=== PATIENT | female | born 1930 | race Caucasian/White ===

== ENCOUNTER 2017-02-16 18:03 | Inpatient (IN) | payer MEDICARE ==
[~2017-02-16] VITALS: Ht 162.6 cm; Wt 62.7 kg
[2017-02-16 22:10] VITALS: BP 149/69; PULSE 60; RESP 17; TEMP 97.2; O2SAT 93
[2017-02-16] MEDS ORDERED: METO50TA PO (22:18)
[2017-02-16] MEDS ORDERED: LOSA50TA PO (22:18)
[2017-02-16] MEDS ORDERED: LEVO.05 PO (22:18)
[2017-02-16] MEDS ORDERED: NORC5TAB PO (22:20)
[2017-02-16] MEDS ORDERED: NALOXONE HCL 0.4 MG/ML AMP IV PRN (22:30)
[2017-02-16] MEDS ORDERED: SODIUM CHLORIDE 0.9% FLUSH 10 ML FLUSH IV FLUSH PRN (22:30)
[2017-02-17] MEDS: ACETAMINOPHEN/HYDROcodone 325 MG/5 MG TAB PO PRN ×3 (00:50→20:34)
--- NOTE | 2017-02-17 01:12 | HHI.HP ---
[facility] Service [facility] Hospitalists Primary Care Physician Eric Barrientos M.D. Admission Diagnosis Diagnoses: (1) Weakness of both lower extremities (2) Bilateral lower extremity pain (3) Left leg DVT (4) Hypothyroidism (5) Hypertension Chief Complaint: lower extremity weakness and pain Travel History International Travel<30 Days: No Contact w/Intl Traveler <30 Da: No Traveled to Known Affected Are: No History of Present Illness Mrs. Terrazas is a pleasant 86 year-old female who states she was in mostly good health (with no hospitalizations since 1978) until the end of January when she developed weakness and pain in her lower extremities. She was initially admitted to [facility] 02/11/17-02/13/17 and was transferred to [facility] for neurosurgical evaluation and was discharged on 02/16/17to [place] for EMG per Dr. Burton who had evaluated her at [facility]. Medical records from [facility] reviewed; labs unremarkable - CPK normal at 107 on 02/16/17 MRI Cervical spine 02/15/17 with prominent multilevel degenerative changes causing mild to moderate central canal and neural foraminal stenosis. No cord compression or myelomalacia MRI Thoracic spine 02/15/17 with multilevel degenerative changes without central canal or neural foraminal stenosis. No cord compression or myelomalacia. Small bilateral pleural effusions. 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 The patient reports that she lives with her and has been independently ambulatory and able to drive herself until the end of January when she began to experience increasing pain and weakness in her bilateral lower extremities that was somewhat worse on the left. She states she has not regained strength in her lower extremities throughout her hospitalizations. She reports that a DVT was found in her left lower extremity at [facility] and states that she takes Coumadin and Lovenox for this. Prior to this hospitalization, she denies any dizziness, chest pain, palpitations, shortness of breath, dizziness, nausea, vomiting, diarrhea, black or bright red stools. She denies any recent cold or flu symptoms such as fever , chills, nasal discharge, or sinus pressure/congestion. She denies any history of burning or pain with urination, urinary incontinence; She reports no BMs since 02/12/17. She denies any history of diabetes mellitus, heart disease, congestive heart failure, atrial fibrillation, respiratory disease, liver or kidney problems, seizures, cancers, and prior to hospitalization at [facility], she had no history of blood clots such as DVT, CVA or PE. . Past Family Social History Past Medical History Hypothyroidism Hypertension Osteoarthritis . Past Surgical History Hysterectomy . Reported Medications Reported Meds & Active Scripts Active Reported [place] (Hydrocodone-Acetaminophen) 5-325 mg Tab 1 Tab PO Q4H PRN Metoprolol Tartrate 50 Mg Tab 50 Mg PO DAILY Synthroid (Levothyroxine Sodium) 50 Mcg Tab 50 Mcg PO DAILY Losartan (Losartan Potassium) 50 Mg Tab 50 Mg PO DAILY . Allergies: Coded Allergies: No Known Allergies (Unverified , 02/16/17) Active Ordered Medications Current Medications Sodium Chloride (NS Flush) 2 ml UNSCH PRN IV FLUSH FLUSH AFTER USING IV ACCESS ; Start 02/16/17 at 22:30 Sodium Chloride (NS Flush) 2 ml BID IV FLUSH ; Start 02/17/17 at 09:00 Naloxone HCl (Narcan Inj) 0.4 mg UNSCH PRN IV SEE LABEL COMMENTS; Start at 22:30 Levothyroxine Sodium (Synthroid) 50 mcg DAILY@06 PO ; Start 02/17/17 at 06:00 Losartan Potassium (Cozaar) 50 mg DAILY PO ; Start 02/17/17 at 09:00 Metoprolol Tartrate (Lopressor) 50 mg DAILY PO ; Start 02/17/17 at 09:00 Acetaminophen/ Hydrocodone Bitart ([place] 5-325 Mg) 1 tab Q6H PRN PO pain >5 Last administered on 02/17/17t 00:50; Start 02/17/17 at 00:45 Enoxaparin Sodium (Lovenox Inj) 70 mg Q12H SQ ; Start 02/17/17 at 09:00 Warfarin Sodium (Coumadin) 5 mg DAILY@1600 PO ; Start 02/17/17 at 16:00; Status UNV Docusate Sodium (Colace) 100 mg BID PO ; Start 02/17/17 at 09:00 Magnesium Hydroxide (Milk Of Magnesia Liq) 30 ml DAILY PRN PO CONSTIPATION; Start 02/17/17 at 01:45 . Family History Brother with CVA Sister with COPD . Social History Tobacco: Smoked more than 30 years ago and is unable to recall exactly when she quit Alcohol: Rarely Illicit Drugs: denies . Physical Exam Vital Signs Vital Signs Date Time Temp Pulse Resp B/P Pulse Ox O2 Delivery O2 Flow Rate FiO2 02/16/17 22:10 97.2 60 17 149/69 93 Physical Exam GENERAL: This is a well-nourished, well-developed patient, in no apparent distress. SKIN: No rashes, ecchymoses or lesions. Cool and dry. HEAD: Atraumatic. Normocephalic. No temporal or scalp tenderness. EYES: Pupils equal round and reactive. Extraocular motions intact. No scleral icterus. No injection or drainage. ENT: Nose without bleeding, purulent drainage or septal hematoma. Throat without erythema, tonsillar hypertrophy or exudate. Uvula midline. Airway patent. NECK: Trachea midline. No JVD or lymphadenopathy. Supple, nontender, no meningeal signs. CARDIOVASCULAR: Regular rate and rhythm without murmurs, gallops, or rubs. RESPIRATORY: Clear to auscultation. Breath sounds equal bilaterally. No wheezes , rales, or rhonchi. GASTROINTESTINAL: Abdomen soft, non-tender, nondistended. No hepato-splenomegaly , or palpable masses. No guarding. MUSCULOSKELETAL: Extremities without clubbing, cyanosis, or edema. No joint tenderness, effusion, or edema noted. No calf tenderness. Negative Homans sign bilaterally. NEUROLOGICAL: Awake and alert. Cranial nerves II through XII intact. Motor and sensory grossly within normal limits. Five out of 5 muscle strength in all muscle groups. Normal speech. Imaging Medical records from [facility] reviewed: MRI Cervical spine 02/15/17 with prominent multilevel degenerative changes causing mild to moderate central canal and neural foraminal stenosis. No cord compression or myelomalacia MRI Thoracic spine 02/15/17 with multilevel degenerative changes without central canal or neural foraminal stenosis. No cord compression or myelomalacia. Small bilateral pleural effusions. 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 Assessment and Plan Problem List: (1) Weakness of both lower extremities ICD Code: R29.898 Status: Acute (2) Bilateral lower extremity pain ICD Code: M79.604 Status: Acute (3) Left leg DVT ICD Code: I82.402 Status: Acute (4) Hypothyroidism ICD Code: E03.9 Status: Chronic (5) Hypertension ICD Code: I10 Status: Chronic Assessment and Plan Lower extremity weakness and pain - consult Dr. Burton DVT left lower extremity per review of records - Coumadin 5 mg daily - Lovenox 70 mg subcutaneously q12h - INR 1.3 on 02/16/17 Hypertension - resume home medications with hold parameters - monitor trends in bp and adjust treatments as needed Hypothyroidism - continue home Synthroid - TSH 0.880, T4 8.2 on 02/15/17 DVT prophylaxis - Lovenox with bridge to Coumadin Written by Kathy Eller, acting as scribe for Dr. Jung on 02/17/17 at 01:11. All or portions of this note were transcribed by scribe [Kathy Eller]. I, Dr. Damian Jung personally performed the history, physical exam, and medical decision making; and confirmed the accuracy of the information in the transcribed note. Authenticated by Dr. Damian Jung on 02/17/17 at 01:11. Discussed Condition With Patient and RN . Physician Certification 2 Midnight Certification Type: Admission for Inpatient Services Order for Inpatient Services The services are ordered in accordance with Medicare regulations or non- Medicare payer requirements, as applicable. In the case of services not specified as inpatient-only, they are appropriately provided as inpatient services in accordance with the 2-midnight benchmark. Estimated LOS (days): 2 days is the estimated time the patient will need to remain in the hospital, assuming treatment plan goals are met and no additional complications. Post-Hospital Plan: Not yet determined Kathy Eller Feb 17, 2017 01:12 Damian Jung MD Feb 17, 2017 07:21
[2017-02-17 02:10] VITALS: PULSE 59
[2017-02-17 04:00] VITALS: BP 134/67; PULSE 59; RESP 16; TEMP 97; O2SAT 93
[2017-02-17] MEDS: LEVOTHYROXINE SODIUM 50 MCG TAB PO SCH (04:39)
[2017-02-17 07:27] LABS: AUTOMATED NEUTROPHIL # 8.5 TH/MM3 (1.8-7.7); BASOPHIL % 0.1 % (0.0-2.0); HEMATOCRIT 43.6 % (35.0-46.0); HEMO FLAGS DIFF FINAL; LYMPH % 15.3 % (9.0-44.0); LYMPHOCYTE # 1.6 TH/MM3 (1.0-4.8); MEAN CELL VOLUME 93.6 FL (80.0-100.0); MEAN CORPUSCULAR HGB CONC 33.1 % (32.0-36.0); MONO % 3.3 % (0.0-8.0); NEUT % 81.3 % (16.0-70.0); PLATELET COUNT 269 TH/MM3 (150-450); RED BLOOD COUNT 4.66 MIL/MM3 (4.00-5.30); RED CELL DISTRIBUTION WIDTH 13.8 % (11.6-17.2); WHITE BLOOD COUNT 10.4 TH/MM3 (4.0-11.0)
[2017-02-17 07:33] LABS: INTERNATIONAL NORMALIZED RATIO 1.4 RATIO; PROTHROMBIN TIME - PATIENT 16.1 SEC (9.8-11.6)
--- NOTE | 2017-02-17 07:48 | HHI.PR ---
Subjective Remarks i dced coumadin as jordana will need LP dep on emg Objective Vital Signs Date Time Temp Pulse Resp B/P Pulse Ox O2 Delivery O2 Flow Rate FiO2 02/17/17 04:00 97.0 59 16 134/67 93 02/17/17 02:10 59 02/16/17 22:10 97.2 60 17 149/69 93 I/O 02/16/17 02/16/17 02/16/17 02/17/17 02/17/17 02/17/17 07:00 15:00 23:00 07:00 15:00 23:00 Intake Total 240 ml Balance 240 ml Intake Oral 240 ml # Voids 1 # Bowel Movements 0 Result Diagram: 02/17/17 0641 Sukhdev Burton MD Feb 17, 2017 07:48
[2017-02-17 07:57] LABS: ALKALINE PHOSPHATASE 104 U/L (45-117); ALT (GPT) 39 U/L (10-53); ANION GAP 9 MEQ/L (5-15); AST (GOT) 42 U/L (15-37); BICARBONATE 27.4 MEQ/L (21.0-32.0); BLOOD UREA NITROGEN 15 MG/DL (7-18); CHLORIDE 100 MEQ/L (98-107); GLOMERULAR FILTRATION RATE 72 ML/MIN (>89); POTASSIUM 4.3 MEQ/L (3.5-5.1); SODIUM (NA) 136 MEQ/L (136-145); TOTAL BILIRUBIN ADULT 0.3 MG/DL (0.2-1.0)
[2017-02-17 08:00] VITALS: BP 162/78; PULSE 63; RESP 18; TEMP 97.3; O2SAT 94
[2017-02-17] MEDS ORDERED: PHYTONADIONE 5 MG TAB PO ONE (08:00)
[2017-02-17] MEDS ORDERED: PILL SPLITTER OTHER PRN (08:15)
[2017-02-17] MEDS: LOSARTAN 50 MG TAB PO SCH (10:10)
[2017-02-17] MEDS: METOPROLOL TARTRATE 50 MG TAB PO SCH (10:11)
[2017-02-17] MEDS: DOCUSATE SODIUM 100 MG CAP PO SCH ×2 (10:11→20:29)
[2017-02-17] MEDS: methylPREDNISolone SO SUCC INJ 1,000 MG in DEXTROSE 5% IN WATER INJ 250 ML IV SCH ×2 (10:13)
[2017-02-17] MEDS: ENOXAPARIN SODIUM 80 MG/0.8 ML SYRINGE SQ SCH ×2 (10:13→20:29)
[2017-02-17] MEDS: SODIUM CHLORIDE 0.9% FLUSH 10 ML FLUSH IV FLUSH SCH ×2 (10:14→20:29)
[2017-02-17] MEDS: PANTOPRAZOLE SOD 20 MG DELAYED RELEASE TAB PO SCH (10:21)
[2017-02-17 12:00] VITALS: BP 161/63; PULSE 81; RESP 18; TEMP 97.5; O2SAT 92
[2017-02-17] MEDS ORDERED: WARFARIN SOD 5 MG TAB PO SCH (16:00)
--- NOTE | 2017-02-17 16:34 | PD.CONS ---
[facility] Service Rehabilitation Medicine Consult Requested By Rafael Burton MD Reason for Consult Comprehensive rehabilitation evaluation. Primary Care Physician Eric Barrientos M.D. History of Present Illness Jie Terrazas is an 86-year-old [id number] female admitted to [facility] 02/17/17 with a history of bilateral lower extremity weakness and pain which began at the end of January 2017. MRIs 02/15/17 of the cervical, thoracic, lumbar spine showed no cord compression or significant central canal stenosis. MRI Brain the same date showed no acute intracranial abnormality. CTA abdomen, pelvis, and runoff vessels 02/15/17 with chronic total occlusion of the right superficial femoral artery; multifocal moderate and severe stenoses in the left superficial femoral artery. Review of Systems Constitutional: COMPLAINS OF: Fatigue Eyes: DENIES: Diplopia Ears, nose, mouth, throat: DENIES: Hearing loss Respiratory: DENIES: Shortness of breath Cardiovascular: DENIES: Chest pain Gastrointestinal: DENIES: Abdominal pain Genitourinary: DENIES: Urinary incontinence Musculoskeletal: COMPLAINS OF: Muscle aches Integumentary: DENIES: Pruritus Hematologic/lymphatic: COMPLAINS OF: Bruising Immunologic/allergic: DENIES: Urticaria Neurologic: COMPLAINS OF: Localized weakness, Paresthesias, DENIES: Headache, Speech Problems Psychiatric: DENIES: Confusion Past Family Social History Allergies: Coded Allergies: No Known Allergies (Unverified , 02/16/17) Past Medical History Hypothyroidism Hypertension Osteoarthritis Past Surgical History Hysterectomy Current Medications Current Medications Medications (Trade) Dose Ordered Sig/Jaron Route Start Time Stop Time Status Last Admin (NS Flush) 2 ml UNSCH PRN IV FLUSH 02/16/17 22:30 (NS Flush) 2 ml BID IV FLUSH 02/17/17 09:00 02/17/17 10:14 (Narcan Inj) 0.4 mg UNSCH PRN IV 02/16/17 22:30 (Synthroid) 50 mcg DAILY@06 PO 02/17/17 06:00 02/17/17 04:39 (Cozaar) 50 mg DAILY PO 02/17/17 09:00 02/17/17 10:10 (Lopressor) 50 mg DAILY PO 02/17/17 09:00 02/17/17 10:11 ([place] 5-325 Mg) 1 tab Q6H PRN PO 02/17/17 00:45 02/17/17 10:20 (Lovenox Inj) 70 mg Q12H SQ 02/17/17 09:00 02/17/17 10:13 (Colace) 100 mg BID PO 02/17/17 09:00 02/17/17 10:11 (Milk Of Magnesia Liq) 30 ml DAILY PRN PO 02/17/17 01:45 (Pill Splitter) 1 ea UNSCH PRN OTHER 02/17/17 08:15 02/17/17 10:12 Pantoprazole Sodium 20 mg 20 mg DAILY PO 02/17/17 10:00 02/17/17 10:21 (SoluMEDROL INJ/ D5W Inj) 266 ml @ 532 mls/hr Q24H IV 02/17/17 11:00 02/17/17 10:13 Family History Noncontributory to the history of present illness. Brother CVA. Sister COPD Social History Prior to the onset of lower extremity weakness patient was independent with mobility and ADLs. She lives with her . No tobacco or alcohol history. Exam I&O / VS 02/16/17 02/16/17 02/17/17 15:00 23:00 07:00 Intake Total 240 ml Balance 240 ml Intake Oral 240 ml # Voids 1 # Bowel Movements 0 Vital Signs Date Time Temp Pulse Resp B/P Pulse Ox O2 Delivery O2 Flow Rate FiO2 02/17/17 12:00 97.5 81 18 161/63 92 02/17/17 08:00 97.3 63 18 162/78 94 02/17/17 04:00 97.0 59 16 134/67 93 02/17/17 02:10 59 02/16/17 22:10 97.2 60 17 149/69 93 General: No acute distress Respiratory: Lungs CTA, Non-labored respirations, BS equal Gastrointestinal: Positive Bowel Sounds, Non-Distended Cardiovascular: Normal rate, Regular Rhythm Skin: Other (no rash noted) Musculoskeletal: Swelling (none in the lower extremities) Psychiatric: Cooperative, Appropriate mood & affect Orientation: oriented to Self, oriented to Place, oriented to Situation Neurologic: EOM (intact), Facial Symmetry (symmetric), Speech (clear) Motor: Right Upper Extremity, Left Upper Extremity (5/55/5), Right Lower Extremity (33 +/5), Left Lower Extremity (33 plus/5) Sensory Impaired but present in the lower extremities distally Babinski: Negative Clonus: Negative Exam Comments Nerve Conduction Studies Anti Sensory Summary Table Site NR Peak (ms) Norm Peak (ms) P-T Amp (V) Norm P-T Amp Site1 Site2 Delta-P (ms) Dist (cm) Cisco (m/s) Norm Cisco (m/s) Right Median Anti Sensory (2nd Digit) 22.8C Wrist 3.9 <3.6 2.7 >10 Wrist 2nd Digit 3.9 14.0 >39 4.0 4.8 Elbow Wrist 0.1 0.0 >48 Left Sural Anti Sensory (Lat Mall) 22.9C Calf NR <4.0 >5.0 Calf Lat Mall 0.8 14.0 \ >35 NR Right Sural Anti Sensory (Lat Mall) 22.9C Calf NR <4.0 >5.0 Calf Lat Mall 14.0 >35 Site 2 NR Right Ulnar Anti Sensory (5th Digit) 22.8C Wrist 3.6 <3.7 4.6 >15.0 Wrist 5th Digit 3.6 14.0 >38 3.7 8.4 B Elbow Wrist 0.1 0.0 >47 Motor Summary Table Site NR Onset (ms) Norm Onset (ms) O-P Amp (mV) Norm O-P Amp Site1 Site2 Delta- 0 (ms) Dist (cm) Cisco (m/s) Norm Cisco (m/s) Right Median Motor (Abd Poll Brev) 22.8C Wrist 3.4 <4.2 3.9 >5 Elbow Wrist 4.3 24.5 57 >50 Elbow 7.7 3.0 Left Peroneal Motor (Ext Dig Brev) 22.8C Ankle NR <6.1 >2.5 Right Peroneal Motor (Ext Dig Brev) 22.8C Ankle 4.3 <6.1 2.2 >2.5 B Fib Ankle 7.3 34.0 47 >38 B Fib 11.6 2.1 Left Tibial Motor (Abd Cameron Brev) 22.9C Ankle 5.2 <6.1 4.7 >3.0 Knee Ankle 8.5 40.5 48 >35 Knee 13.7 3.3 Right Tibial Motor (Abd Cameron Brev) 22.8C Ankle 5.5 <6.1 2.9 >3.0 Knee Ankle 8.3 41.5 50 >35 Knee 13.8 1.4 Right Ulnar Motor (Abd Dig Minimi) 22.8C Wrist 2.5 <4.2 4.3 >3 Elbow Wrist 3.4 23.0 68 >53 Elbow 5.9 5.4 F Wave Studies NR F-Lat (ms) Lat Norm (ms) L-R F-Lat (ms) L-R Lat Norm Right Median (Mrkrs) (Abd Poll Brev) 22.8C 26.92 <33 <2.2 Left Peroneal (Mrkrs) (EDB) 22.8C NR <60 <5.1 Right Peroneal (Mrkrs) (EDB) 22.8C 40.00 <60 <5.1 Left Tibial (Mrkrs) (Abd Hallucis) 22.9C 55.76 <61 0.00 <5.7 Right Tibial (Mrkrs) (Abd Hallucis) 22.9C 55.76 <61 0.00 <5.7 Right Ulnar (Mrkrs) (Abd Dig Min) 22.8C 28.14 <36 <2.5 EMG Side Muscle Nerve Root Ins Act Fibs Psw Amp Dur Poly Recrt Int Pat Comment Right VastusMed Femoral L2-4 Nml Nml Nml Nml Nml 0 Nmp Decr Right AntTibialis Dp Br Peron L4-5 Nml Nml Nml Nml Nml 0 Nml Decr Right MedGastroc Tibial S1-2 Nml Nml Nml Nml Nml 0 Nml Decr Right AbdHallucis MedPlantar S1-2 Nml Nml Nml Nml Nml 0 Nml Decr Left VastusMed Femoral L2-4 Nml Nml Nml Nml Nml 0 Nml Decr Left AntTibialis Dp Br Peron L4-5 Nml Nml Nml Nml Nml 0 Nml Decr Left MedGastroc Tibial S1-2 Nml Nml Nml Nml Nml 0 Nml Decr Left AbdHallucis MedPlantar S1-2 Nml Nml Nml Nml Nml 0 Nml Decr Assessment and Plan Diagnosis: (1) Weakness of both lower extremities (2) Bilateral lower extremity pain Assessment 1. Progressive LE weakness. 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 EMG nerve conduction studies discussed with neurology. 2. PT to provide ROM and strengthening and progress to mobilization 3. OT for ADL's 4. May need LE bracing. Will follow. 5. Will likely need ongoing rehabilitation at discharge. Will follow in conjunction with case management regrading level of care. Thank you for this consult Paola Gay MD Feb 17, 2017 16:33
[2017-02-17 16:46] VITALS: BP 166/86; PULSE 62; RESP 16; TEMP 97.5; O2SAT 96
--- NOTE | 2017-02-17 16:48 | MB ---
cc: STEPHANIE EL M.D. DATE OF CONSULTATION 02/17/17 This is an 86 year old right-handed woman with hypertension, hypercholesterolemia, hypothyroidism. For the last six months, she has had occasional cramps and spasms in her calves and worse in the last two weeks, some John horse there. Last she went to the bathroom in the morning, seemed to be walking fine and leaving the bathroom could not walk. She was able to go over to the bed and fell down the bed, was not able to get off the bed and then the candy wrapping machine operator were called. She went down in [place]. They thought maybe she had some cervical spinal stenosis and sent up to [facility] in [place] and was found there not to have significant cervical spinal stenosis nor thoracic ir lumbosacral major spinal stenosis. She did, however, appear quite weak in her lower extremities bilaterally and, subsequently, an EMG was ordered but since the did not have EMG capabilities at [facility] she was transferred to [facility] where she is now. MEDICATIONS At home, 1. Losartan 2. Metoprolol 3. Synthroid 4. Also gave her a gram of Solu-Medrol yesterday and I have ordered some today. She had a left lower extremity DVT. She had a glucose level of 120. LFTs were normal. Sodium level normal. CAT scan of the brain was negative. She had a repeat MRI of her cervical, thoracic and lumbosacral spine with contrast. Again, nothing was found. MRI of the brain negative. Chest x-ray showed some COPD. SOCIAL HISTORY Not a smoker, not a drinker, lives with . REVIEW OF SYSTEMS No history of diabetes, CA, coronary artery bypass graft, stent, angioplasty, atrial fibrillation, Coumadin, renal, hepatic or pulmonary disease, lupus, ulcer, cancer, seizure, stroke. No recent back pain. FAMILY HISTORY Negative for cancer, seizure, stroke. NEUROLOGICAL EXAMINATION On exam visual reina are full. Face is symmetric. Upper extremity strength is normal bilaterally. In the lower extremity, right iliopsoas checked earlier this morning was a 4- to 4/5, left iliopsoas 4-/5, quadriceps I thought was a bit stronger 4+/5 on the right side and 5+/5 on the left, hamstrings remained weak at 4-/5 bilaterally. Tibialis anterior on the right 4-/5, on the left 0/5. DTRs are hyperreflexic 2 to 3+ and symmetric in the knees. IMPRESSION Probably a myelopathy, although a neuropathy is considered. We will order an EMG and CV and likely need and LP. Spinal cord infarct or transverse myelitis could be considered. We did do I note bilateral lower extremity arterial CTA which although she has significant peripheral vascular disease Dr. Cabral from vascular surgery did not think that was causing the weakness in her legs. MD ERIK Boone/ /2:41 PM /4:33 PM
--- NOTE | 2017-02-17 18:55 | HHI.PR ---
Addendum to Inpatient Note Addendum Reason: Additional Documentation Additional Information Pt was evaluated earlier this pm. and children at bedside. She had no concerns and tells me that she was transferred here for her EMG. Symptoms started february 11. Waiting for EMG to be done. I did speak w Dr. Gay who was going to see pt and states that she will follow as well. Will review consult/EMG report per neuro's note, Base on EMG report, he will determine if pt will need LP. Appreciate assistance from all consultants Wendy Villanueva MD Feb 17, 2017 18:55
[2017-02-17 19:50] VITALS: BP 151/71; PULSE 60; RESP 16; TEMP 97.6; O2SAT 94
[2017-02-17] MEDS: MAGNESIUM HYDROXIDE SUSP 30 ML CUP PO PRN (20:30)
[2017-02-18] VITALS (7 sets, daily range): BP systolic 129–181; BP diastolic 67–88; PULSE 49–78; RESP 16–18; TEMP 96–96.7; O2SAT 93–100
[2017-02-18] MEDS: ACETAMINOPHEN/HYDROcodone 325 MG/5 MG TAB PO PRN ×3 (02:28→20:54)
[2017-02-18] MEDS ORDERED: ACETAMINOPHEN/HYDROcodone 325 MG/5 MG TAB PO ONE (05:15)
[2017-02-18] MEDS: LEVOTHYROXINE SODIUM 50 MCG TAB PO SCH (05:15)
[2017-02-18] MEDS: ENOXAPARIN SODIUM 80 MG/0.8 ML SYRINGE SQ SCH ×2 (08:17→20:54)
--- NOTE | 2017-02-18 08:31 | HHI.PR ---
Subjective Remarks inr pend last lovenox 830pm yest Objective Vital Signs Date Time Temp Pulse Resp B/P Pulse Ox O2 Delivery O2 Flow Rate FiO2 02/18/17 04:00 96.4 59 17 181/88 94 02/18/17 00:00 96.7 60 16 164/78 94 02/17/17 19:50 97.6 60 16 151/71 94 02/17/17 16:46 97.5 62 16 166/86 96 02/17/17 12:00 97.5 81 18 161/63 92 I/O 02/17/17 02/17/17 02/17/17 02/18/17 02/18/17 02/18/17 07:00 15:00 23:00 07:00 15:00 23:00 Intake Total 240 ml 1200 ml 240 ml 240 ml Balance 240 ml 1200 ml 240 ml 240 ml Intake Oral 240 ml 1200 ml 240 ml 240 ml # Voids 1 2 1 2 # Bowel Movements 0 0 0 0 Result Diagram: 02/17/17 0641 02/17/17 0641 Objective Remarks bue nl ip 3+ r 3- left knee up 5/5 r 4/5 left quad 4+bilat ham 4- to 3+ bilat r ta 4+ left old foot drop 1-2 Assessment and Plan Assessment and Plan impp emg sensory neuropathy ow essentially nl yest likley myelopathy possible cord infarct will check ct chest and abd if not done at [facility] LP today fu inr b4 that dvt issue maybe a little better after steroids Sukhdev Burton MD Feb 18, 2017 08:31
[2017-02-18] MEDS: METOPROLOL TARTRATE 50 MG TAB PO SCH (08:46)
[2017-02-18] MEDS: PANTOPRAZOLE SOD 20 MG DELAYED RELEASE TAB PO SCH (08:46)
[2017-02-18] MEDS: DOCUSATE SODIUM 100 MG CAP PO SCH ×2 (08:46→20:54)
[2017-02-18] MEDS: LOSARTAN 50 MG TAB PO SCH (08:46)
[2017-02-18] MEDS: SODIUM CHLORIDE 0.9% FLUSH 10 ML FLUSH IV FLUSH SCH ×2 (08:47→20:54)
[2017-02-18] MEDS: methylPREDNISolone SO SUCC INJ 1,000 MG in DEXTROSE 5% IN WATER INJ 250 ML IV SCH ×2 (11:49)
--- NOTE | 2017-02-18 12:00 | HHI.PR ---
Subjective Remarks Pt states that she feels "more human" sitting up. Denies any chest pain, SOB, nausea or vomiting. She states that after the EMG she had some pain in her muscles but now those have resolved. Objective Vitals Vital Signs Date Time Temp Pulse Resp B/P Pulse Ox O2 Delivery O2 Flow Rate FiO2 02/18/17 08:54 49 02/18/17 08:00 96.0 78 18 153/83 93 02/18/17 04:00 96.4 59 17 181/88 94 02/18/17 00:00 96.7 60 16 164/78 94 02/17/17 19:50 97.6 60 16 151/71 94 02/17/17 16:46 97.5 62 16 166/86 96 02/17/17 12:00 97.5 81 18 161/63 92 I/O 02/17/17 02/17/17 02/17/17 02/18/17 02/18/17 02/18/17 07:00 15:00 23:00 07:00 15:00 23:00 Intake Total 240 ml 1200 ml 240 ml 240 ml Balance 240 ml 1200 ml 240 ml 240 ml Intake Oral 240 ml 1200 ml 240 ml 240 ml # Voids 1 2 1 2 # Bowel Movements 0 0 0 0 Result Diagram: 02/17/17 0641 02/17/17 06 Objective Remarks GENERAL: This is a well-nourished, well-developed patient, in no apparent distress. CARDIOVASCULAR: Regular rate and rhythm without murmurs RESPIRATORY: Clear to auscultation. Breath sounds equal bilaterally. No wheezes GASTROINTESTINAL: Abdomen soft, non-tender, nondistended. No guarding. MUSCULOSKELETAL: Extremities without edema. NEUROLOGICAL: Awake and alert. Cranial nerves II through XII intact. she is able to extend and flex her legs at the knee, she can plantar flex her feet but has a hard time dorsiflexing L>R foot. She has a hard time wiggling her toes A/P Problem List: (1) Weakness of both lower extremities ICD Code: R29.898 Status: Acute (2) Bilateral lower extremity pain ICD Code: M79.604 Status: Acute (3) Left leg DVT ICD Code: I82.402 Status: Acute (4) Hypothyroidism ICD Code: E03.9 Status: Chronic (5) Hypertension ICD Code: I10 Status: Chronic Assessment and Plan Lower extremity weakness and pain - Dr. Burton, neurologist following. EMG apparently was neg. Pt will need an LP. Awaiting INR level. off coumadin and lovenox is on hold DVT left lower extremity per review of records - off coumadin - hold Lovenox 70 mg subcutaneously q12h - INR 1.4 on 02/17/17 Hypertension - on home meds, monitor closely as BP somewhat elevated this morning. Adjust as needed. Hypothyroidism - on home Synthroid - TSH 0.880, T4 8.2 on 02/15/17 DVT prophylaxis - hold anticoag for procedure PT/OT following. Rehab physician also on case. Appreciate assistance Discharge Planning d/c pending further work-up and clinical improvement. Wendy Villanueva MD Feb 18, 2017 12:00
[2017-02-18 12:49] LABS: PROTHROMBIN TIME - PATIENT 11.5 SEC (9.8-11.6)
[2017-02-19 00:39] VITALS: BP 152/81; PULSE 79; RESP 18; TEMP 96.7; O2SAT 96
[2017-02-19] MEDS: ACETAMINOPHEN/HYDROcodone 325 MG/5 MG TAB PO PRN ×4 (03:21→22:08)
[2017-02-19] MEDS: LEVOTHYROXINE SODIUM 50 MCG TAB PO SCH (04:23)
[2017-02-19 04:39] VITALS: BP 169/73; PULSE 67; RESP 18; TEMP 97.2; O2SAT 94
[2017-02-19 08:00] VITALS: BP 167/85; PULSE 80; RESP 20; TEMP 96.9; O2SAT 94
--- NOTE | 2017-02-19 08:17 | HHI.PR ---
Subjective Remarks inr 1.0 yest Objective Vital Signs Date Time Temp Pulse Resp B/P Pulse Ox O2 Delivery O2 Flow Rate FiO2 02/19/17 04:39 97.2 67 18 169/73 94 02/19/17 00:39 96.7 79 18 152/81 96 02/18/17 19:54 96.7 66 16 145/73 94 02/18/17 15:15 96.7 71 16 129/67 94 02/18/17 12:49 18 02/18/17 12:00 96.7 54 18 100 02/18/17 08:54 49 I/O 02/18/17 02/18/17 02/18/17 02/19/17 02/19/17 02/19/17 07:00 15:00 23:00 07:00 15:00 23:00 Intake Total 240 ml 1200 ml 360 ml 360 ml Output Total 260 ml Balance 240 ml 1200 ml 100 ml 360 ml Intake Oral 240 ml 1200 ml 360 ml 360 ml Output Urine Total 260 ml # Voids 2 2 1 # Bowel Movements 0 1 0 0 Result Diagram: 02/17/1741 02/17/17 0641 Objective Remarks bue nl ip 3+ r 3- left knee up 5/5 r 4/5 left quad 4+bilat ham 4- to 3+ bilat r ta 4+ left old foot drop 1-2 no change pin intact ble x medial r lower leg left kj 2++ r 1+ r bicep refles 2 = Assessment and Plan Assessment and Plan impp emg sensory neuropathy ow essentially nl yest likley myelopathy possible cord infarct i think most likely sudden onset cta ramona bilat le i dw rads and they felt no ca in abd or pelvis will check ct chest here severe pvd would go with cord infarct LP today dvt issue she is not any worse or better since presentation consider pex dep on LP Sukhdev Burton MD Feb 19, 2017 08:17
[2017-02-19] MEDS: ENOXAPARIN SODIUM 80 MG/0.8 ML SYRINGE SQ SCH ×2 (09:00→21:00)
[2017-02-19] MEDS ORDERED: IOHEXOL 350 MG/ML 10 ML VIAL (for RAD DIAG) IV ONE (09:44)
--- NOTE | 2017-02-19 10:16 | RADRPT ---
EXAM DATE/TIME: 02/19/2017 09:22 [facility] COMPARISON: No previous studies available for comparison. INDICATIONS : Lower extremity weakness, evaluate for possible mass. IV CONTRAST: 69 cc Omnipaque 350 (iohexol) IV RADIATION DOSE: 5.25 CTDIvol (mGy) MEDICAL HISTORY : Cardiovascular disease. Hypertension. SURGICAL HISTORY : None. ENCOUNTER: Initial ACUITY: 1 week PAIN SCALE: 0/10 LOCATION: chest TECHNIQUE: Volumetric scanning of the chest was performed. Using automated exposure control and adjustment of t he mA and/or kV according to patient size, radiation dose was kept as low as reasonably achievable to obtain optimal diagnostic quality images. FINDINGS: Imaging through the pulmonary parenchyma demonstrates mild fibrotic changes and COPD. There are small bilateral pleural effusions. The examination does demonstrate a 1.2 x 0.8 cm pleural-based nodule on the right. This is indeterminate by CT imaging follow up CT in 6 months document stability would be warranted. The remainder of the pulmonary parenchyma is clear. There is no significant hilar, mediastinal or axillary adenopathy. The ascending aorta is at the uppe r limits of normal in size. It is intact. The heart is enlarged. There is minimal pericardial effusio n. The limited portions of upper abdomen visualized are unremarkable. There are degenerative changes within the thoracic spine. CONCLUSION: 1. COPD changes. 2. 0.8 x 1.2 cm pleural-based nodule posteriorly on the right. This is nonspecific in appearance by C T. It is of low suspicion for malignancy. Followup CT imaging in 6 months to document stability would be of benefit. 3. Bilateral pleural effusions with small areas of atelectasis in the lung bases. Pantera Traore MD on February 19, 2017 at 10:11 Board Certified Radiologist. This report was verified electronically.
--- NOTE | 2017-02-19 11:17 | PD.RAD ---
Post Procedure Progress Note Pre Procedure Diagnosis: (1) Weakness of both lower extremities (2) Bilateral lower extremity pain Post Procedure Diagnosis: Procedure Date: Feb 19, 2017 Supervising Radiologist: Avelino Ng Proceduralist/Assist: Sarah Beth Marinelli, RT(R)(), Rosa Eddy RT(R)(CV) Anesthesia: Local Plan of Activity Patient to Unit: Nursing Unit Patient Condition: Good See PACS Report for procedural detail/treatment Spinal Procedure Lumbar Puncture L3-L4 Fluid Removal (CCs): 21 Fluid Description: Clear Puncture Time: 10:13 Avelino Ng MD Feb 19, 2017 11:17
[2017-02-19 11:43] LABS: GROSS BLOOD TUBE #1 1+ (0); GROSS BLOOD TUBE #2 1+ (0); GROSS BLOOD TUBE #3 1+ (0); SUPERNATE COLOR TUBE #1 CLEAR (CLEAR); SUPERNATE COLOR TUBE #2 CLEAR (CLEAR); SUPERNATE COLOR TUBE #3 CLEAR (CLEAR); VOLUME TUBE # 2 4.3 ML; WBC TUBE #1 2 /MM3 (0-10)
[2017-02-19 11:44] LABS: CSF LYMPHOCYTES 46 %; CSF MONOCYTES 37 %; CSF NEUTROPHILS 17 %; GROSS BLOOD TUBE #4 0 (0); SUPERNATE COLOR TUBE #4 CLEAR (CLEAR); VOLUME TUBE # 4 7.5 ML
[2017-02-19 11:45] LABS: CSF LYMPHOCYTES 21 %; CSF MONOCYTES 79 %; CSF NEUTROPHILS 0 %; GROSS BLOOD TUBE #4 0 (0); SUPERNATE COLOR TUBE #4 CLEAR (CLEAR); VOLUME TUBE # 4 7.5 ML; WBC TUBE #4 6 /MM3 (0-10)
[2017-02-19 12:00] VITALS: BP 172/88; PULSE 79; RESP 20; TEMP 98.3; O2SAT 93
[2017-02-19] MEDS: DOCUSATE SODIUM 100 MG CAP PO SCH ×2 (12:13→22:09)
[2017-02-19] MEDS: LOSARTAN 50 MG TAB PO SCH (12:13)
[2017-02-19] MEDS: PANTOPRAZOLE SOD 20 MG DELAYED RELEASE TAB PO SCH (12:13)
[2017-02-19] MEDS: METOPROLOL TARTRATE 50 MG TAB PO SCH (12:13)
[2017-02-19] MEDS: SODIUM CHLORIDE 0.9% FLUSH 10 ML FLUSH IV FLUSH SCH ×2 (12:13→22:09)
[2017-02-19] MEDS: methylPREDNISolone SO SUCC INJ 1,000 MG in DEXTROSE 5% IN WATER INJ 250 ML IV SCH ×2 (13:18)
[2017-02-19 16:20] VITALS: BP 169/79; PULSE 76; RESP 16; TEMP 96; O2SAT 94
--- NOTE | 2017-02-19 18:16 | HHI.PR ---
Subjective Remarks Patient was evaluated earlier today. Patient told me she was feeling well. She had some soreness in her muscles otherwise has no other complaint. She denies any chest pain, shortness of breath, nausea or vomiting. Objective Vitals Vital Signs Date Time Temp Pulse Resp B/P Pulse Ox O2 Delivery O2 Flow Rate FiO2 02/19/17 16:20 96.0 76 16 169/79 94 02/19/17 12:00 98.3 79 20 172/88 93 02/19/17 08:00 96.9 80 20 167/85 94 02/19/17 04:39 97.2 67 18 169/73 94 02/19/17 00:39 96.7 79 18 152/81 96 02/18/17 19:54 96.7 66 16 145/73 94 I/O 02/18/17 02/18/17 02/18/17 02/19/17 02/19/17 02/19/17 07:00 15:00 23:00 07:00 15:00 23:00 Intake Total 240 ml 1200 ml 360 ml 360 ml 420 ml Output Total 260 ml Balance 240 ml 1200 ml 100 ml 360 ml 420 ml Intake Oral 240 ml 1200 ml 360 ml 360 ml 420 ml Output Urine Total 260 ml # Voids 2 2 1 2 # Bowel Movements 0 1 0 0 0 Result Diagram: 02/17/17 0641 02/17/17 0641 Imaging Last Impressions Chest CT 02/19/17 0000 Signed Impressions: Service Date/Time: February 09:22 - CONCLUSION: 1. COPD changes. 2. 0.8 x 1.2 cm pleural-based nodule posteriorly on the right. This is nonspecific in appearance by CT. It is of low suspicion for malignancy. Followup CT imaging in 6 months to document stability would be of benefit. 3. Bilateral pleural effusions with small areas of atelectasis in the lung bases. Pantera Traore MD Objective Remarks GENERAL: This is a well-nourished, well-developed patient, in no apparent distress. CARDIOVASCULAR: Regular rate and rhythm without murmurs RESPIRATORY: Clear to auscultation. Breath sounds equal bilaterally. No wheezes GASTROINTESTINAL: Abdomen soft, non-tender, nondistended. No guarding. MUSCULOSKELETAL: Extremities without edema. NEUROLOGICAL: Awake and alert. Cranial nerves II through XII intact. she is able to extend and flex her legs at the knee, she can plantar flex her feet but has a hard time dorsiflexing L>R foot. She has a hard time wiggling her toes A/P Problem List: (1) Weakness of both lower extremities ICD Code: R29.898 Status: Acute (2) Bilateral lower extremity pain ICD Code: M79.604 Status: Acute (3) Left leg DVT ICD Code: I82.402 Status: Acute (4) Hypothyroidism ICD Code: E03.9 Status: Chronic (5) Hypertension ICD Code: I10 Status: Chronic Assessment and Plan Lower extremity weakness and pain - Dr. Burton, neurologist following. EMG apparently was neg. status post LP today. DVT left lower extremity per review of records -Hold anticoagulations for 24 hours per IR. Hypertension - on home meds, monitor closely as BP somewhat elevated this morning. Adjust as needed. Hypothyroidism - on home Synthroid - TSH 0.880, T4 8.2 on 02/15/17 DVT prophylaxis - hold anticoag for procedure PT/OT following. Rehab physician also on case. Appreciate assistance Discharge Planning d/c pending further work-up and clinical improvement. Wendy Villanueva MD Feb 19, 2017 18:16
[2017-02-19 20:43] VITALS: BP 169/83; PULSE 54; RESP 18; TEMP 97; O2SAT 92
[2017-02-20] VITALS (7 sets, daily range): BP systolic 137–188; BP diastolic 77–93; PULSE 61–76; RESP 17–20; TEMP 97–97.9; O2SAT 92–95
[2017-02-20] MEDS ORDERED: amLODIPine BESYLATE 5 MG TAB PO ONE (02:15)
[2017-02-20] MEDS: ACETAMINOPHEN/HYDROcodone 325 MG/5 MG TAB PO PRN ×3 (04:56→21:22)
[2017-02-20] MEDS: LEVOTHYROXINE SODIUM 50 MCG TAB PO SCH (06:16)
--- NOTE | 2017-02-20 08:47 | HHI.PR ---
Subjective Remarks inr 1.0 yest Objective Vital Signs Date Time Temp Pulse Resp B/P Pulse Ox O2 Delivery O2 Flow Rate FiO2 02/20/17 04:36 97.8 67 17 168/83 93 02/20/17 01:13 73 188/90 94 02/20/17 00:30 97.0 72 17 183/93 95 02/19/17 20:43 97.0 54 18 169/83 92 02/19/17 16:20 96.0 76 16 169/79 94 02/19/17 12:00 98.3 79 20 172/88 93 I/O 02/19/17 02/19/17 02/19/17 02/20/17 02/20/17 02/20/17 07:00 15:00 23:00 07:00 15:00 23:00 Intake Total 360 ml 420 ml 360 ml 240 ml Balance 360 ml 420 ml 360 ml 240 ml Intake Oral 360 ml 420 ml 360 ml 240 ml # Voids 1 2 2 1 # Bowel Movements 0 0 0 0 Result Diagram: 02/17/17 0641 02/17/17 0641 Objective Remarks bue nl ip 3+ r 3- left knee up 5/5 r 4/5 left quad 4+bilat ham 4- to 3+ bilat r ta 4+ left old foot drop 1-2 no change pin intact ble x medial r lower leg left kj 2++ r 1+ no change r bicep refles 2 = Assessment and Plan Assessment and Plan impp emg sensory neuropathy ow essentially nl yest likley myelopathy possible cord infarct i think most likely sudden onset cta ramona bilat le i dw rads and they felt no ca in abd or pelvis will check ct chest here nodule on right needs repeat [address] severe pvd would go with cord infarct LP neg so far dvt issue she is not any worse or better since presentation will do pex i dw her for myelopathy in case any transverse myelitis Sukhdev Burton MD Feb 20, 2017 08:47
[2017-02-20] MEDS: SODIUM CHLORIDE 0.9% FLUSH 10 ML FLUSH IV FLUSH SCH ×2 (09:00→19:53)
[2017-02-20 09:21] LABS: HSV 1,PCR Negative (Negative)
[2017-02-20] MEDS: MAGNESIUM HYDROXIDE SUSP 30 ML CUP PO PRN (10:14)
[2017-02-20] MEDS: PANTOPRAZOLE SOD 20 MG DELAYED RELEASE TAB PO SCH (10:14)
[2017-02-20] MEDS: METOPROLOL TARTRATE 50 MG TAB PO SCH (10:14)
[2017-02-20] MEDS: BACLOFEN 10 MG TAB PO PRN ×2 (10:14→17:44)
[2017-02-20] MEDS: DOCUSATE SODIUM 100 MG CAP PO SCH ×2 (10:14→19:53)
[2017-02-20] MEDS: LOSARTAN 50 MG TAB PO SCH (10:14)
[2017-02-20] MEDS: ENOXAPARIN SODIUM 80 MG/0.8 ML SYRINGE SQ SCH ×2 (10:15→19:53)
--- NOTE | 2017-02-20 11:08 | RADRPT ---
EXAM DATE/TIME: 02/19/2017 10:13 [facility] COMPARISON: No previous studies available for comparison. INDICATIONS : Patient with a history of weakness in lower extremities and myelitis MEDICAL HISTORY : Hypothyroidism HTN Osteoarthritis SURGICAL HISTORY : Hysterectomy ENCOUNTER: Initial ACUITY: 1 week PAIN SCORE: 0/10 LUMBAR PUNCTURE TIME: 1013 hours FLUORO TIME: 0.53 minutes IMAGE SERIES: 1 ACCESS LEVEL: L3-4 FLUID: 21 cc of clear CSF was collected and sent to the laboratory for analysis. PROCEDURE : 1. Fluoroscopic guided lumbar puncture. The risks, benefits and alternatives to the procedure were explained and verbal and written consent w as obtained. The site was prepped in sterile fashion. Full sterile technique was used, including ca p, mask, sterile gloves and gown and a large sterile sheet. Hand hygiene and 2% chlorhexidine and/or betadine/alcohol prep was utilized per protocol for cutaneous antisepsis. The skin and subcutaneous tissues were infiltrated with local anesthetic solution. With fluoroscopic guidance the lumbar thecal sac was punctured at the level above. The fluid describ ed above was removed without difficulty. The patient tolerated the procedure well and there were no complications. CONCLUSION: Uncomplicated fluoroscopically guided lumbar puncture. Avelino Ng MD on February 20, 2017 at 11:06 Board Certified Radiologist. This report was verified electronically.
--- NOTE | 2017-02-20 11:29 | HHI.PR ---
Subjective Remarks Patient reports having persistent muscle spasm and muscle pain mainly involving the left upper thigh. She is also more weak on the left lower extremity. No shortness of breath or chest pain. Objective Vitals Vital Signs Date Time Temp Pulse Resp B/P Pulse Ox O2 Delivery O2 Flow Rate FiO2 02/20/17 08:00 97.0 62 20 180/88 94 02/20/17 04:36 97.8 67 17 168/83 93 02/20/17 01:13 73 188/90 94 02/20/17 00:30 97.0 72 17 183/93 95 02/19/17 20:43 97.0 54 18 169/83 92 02/19/17 16:20 96.0 76 16 169/79 94 02/19/17 12:00 98.3 79 20 172/88 93 I/O 02/19/17 02/19/17 02/19/17 02/20/17 02/20/17 02/20/17 07:00 15:00 23:00 07:00 15:00 23:00 Intake Total 360 ml 420 ml 360 ml 240 ml Balance 360 ml 420 ml 360 ml 240 ml Intake Oral 360 ml 420 ml 360 ml 240 ml # Voids 1 2 2 1 # Bowel Movements 0 0 0 0 Result Diagram: 02/17/17 0641 02/17/17 0641 Imaging Last Impressions Lumbar Puncture Fluoroscopy 02/19/17 0000 Signed Impressions: Service Date/Time: February 10:13 - CONCLUSION: Uncomplicated fluoroscopically guided lumbar puncture. Avelino Ng MD Chest CT 02/19/17 0000 Signed Impressions: Service Date/Time: February 09:22 - CONCLUSION: 1. COPD changes. 2. 0.8 x 1.2 cm pleural-based nodule posteriorly on the right. This is nonspecific in appearance by CT. It is of low suspicion for malignancy. Followup CT imaging in 6 months to document stability would be of benefit. 3. Bilateral pleural effusions with small areas of atelectasis in the lung bases. Pantera Traore MD Objective Remarks GENERAL: This is a well-nourished, well-developed patient, in no apparent distress. CARDIOVASCULAR: Normal rate and regular rhythm without murmurs, gallops, or rubs. RESPIRATORY: Good respiratory efforts. Breath sounds equal and clear to auscultation bilaterally. GASTROINTESTINAL: Abdomen soft, non-tender, non-distended. Normal active bowel sounds MUSCULOSKELETAL: Extremities without cyanosis, or edema. NEURO: Alert & Oriented x4 to person, place, time, situation. Can move all extremities but left lower extremity hip joint range of motion is limited due to pain and some slight weakness. PSYCH: Appropriate mood and affect. A/P Problem List: (1) Weakness of both lower extremities ICD Code: R29.898 Status: Acute (2) Bilateral lower extremity pain ICD Code: M79.604 Status: Acute (3) Left leg DVT ICD Code: I82.402 Status: Acute (4) Hypothyroidism ICD Code: E03.9 Status: Chronic (5) Hypertension ICD Code: I10 Status: Chronic Assessment and Plan Lower extremity weakness and pain - Dr. Burton, neurologist following. Likely myelopathy with possible cord infarct. Patient to have plasma exchange transfusion per neurology. Hematology has been consulted. EMG apparently was neg. status post LP. Continue rehabilitation efforts.. DVT left lower extremity per review of records -Anticoagulant was on hold for lumbar puncture. It is now On hold today for Vas -Cath placement Hypertension: Blood pressure uncontrolled. -Continue metoprolol. Add Norvasc. Monitor closely. Hypothyroidism - on home Synthroid - TSH 0.880, T4 8.2 on 02/15/17 DVT prophylaxis - hold anticoag for procedure PT/OT following. Rehab physician also on case. Appreciate assistance Francoise Sanchez MD Feb 20, 2017 11:29
[2017-02-20] MEDS ORDERED: cloNIDine HCL 0.1 MG TAB PO PRN (11:30)
[2017-02-20] MEDS: amLODIPine BESYLATE 5 MG TAB PO SCH (12:22)
[2017-02-20] MEDS: methylPREDNISolone SO SUCC INJ 1,000 MG in DEXTROSE 5% IN WATER INJ 250 ML IV SCH ×2 (12:22)
[2017-02-20] MEDS ORDERED: HEPARIN SODIUM - IV 10,000 UNITS/10 ML VIAL ONE (14:17)
--- NOTE | 2017-02-20 15:13 | PD.RAD ---
Post Procedure Progress Note Pre Procedure Diagnosis: (1) Weakness of both lower extremities (2) Bilateral lower extremity pain Post Procedure Diagnosis: (1) Bilateral lower extremity pain (2) Weakness of both lower extremities Procedure Date: Feb 20, 2017 Supervising Radiologist: Avelino Ng Proceduralist/Assist: Andrea Beck, RT(R), RT Aleyda(R)() Anesthesia: Local Plan of Activity Patient to Unit: Nursing Unit Patient Condition: Good See PACS Report for procedural detail/treatment Central Venous Access Device Procedure 1 Right Internal Jugular Hemodialysis Catheter Non-Tunneled Placement dual lumen [place]: 14 PICC Line Length (cm): 15 Avelino Ng MD Feb 20, 2017 15:13
[2017-02-20] MEDS ORDERED: SODIUM CHLORIDE 0.9% FLUSH 10 ML FLUSH IVF PRN (15:15)
[2017-02-20] MEDS ORDERED: HEPARIN SODIUM - IV 2,000 UNITS/2 ML VIAL IV FLUSH PRN (15:15)
--- NOTE | 2017-02-20 15:33 | RADRPT ---
EXAM DATE/TIME: 02/20/2017 14:59 [facility] COMPARISON: No previous studies available for comparison. INDICATIONS : Patient is in need of placement of a temporary central venous ctheter for plasma phoresis due to acut e myelopathy and bilateral lower extremity weakness. MEDICAL HISTORY : History of foraminal stenosis, right total femoral artery occlusion, left femoral; artery stenosis, b ilateral pleural effusions, AAA, left leg dvt, cardiomegaly, colonic diverticulosis, hypothyroidism. SURGICAL HISTORY : History of hysterectomy. ENCOUNTER: Initial ACUITY: 3 days PAIN SCORE: 8/10 LOCATION: Left leg FLUORO TIME: 0.45 minutes IMAGE SERIES: 1 ACCESS: Right internal jugular vein MEDICATION(S): 1.) 2200 units Heparin catheter lock DEVICE(S): 1.) 14 [place] dual lumen 15 cm Schon catheter PROCEDURE : 1. Ultrasound guided venipuncture. 2. Fluoroscopic guidance. 3. Central line placement. The risks, benefits and alternatives to the procedure were explained and verbal and written consent w as obtained. The site was prepped in sterile fashion. Full sterile technique was used, including ca p, mask, sterile gloves and gown and a large sterile sheet. Hand hygiene and 2% chlorhexidine prep w as utilized per protocol for cutaneous antisepsis with appropriate dry time for site. The skin and subcutaneous tissues were infiltrated with local anesthetic solution. A suitable site a sp the vein was selected with ultrasound and fluoroscopic guidance. A small incision was made. Th e vein was accessed under direct ultrasound visualization using the micropuncture technique. The baldev ropuncture set was exchanged for a 0.035 wire. The tract was dilated. The catheter was advanced int o position under direct fluoroscopic visualization. The catheter was fixed in place with suture and a sterile dressing was applied. The patient tolerated the procedure well and there were no complications. CONCLUSION: Uncomplicated line placement as above. Avelino Ng MD on February 20, 2017 at 15:31 Board Certified Radiologist. This report was verified electronically.
[2017-02-20 16:08] LABS: AUTOMATED NEUTROPHIL # 10.5 TH/MM3 (1.8-7.7); BASOPHIL % 0.1 % (0.0-2.0); HEMATOCRIT 44.1 % (35.0-46.0); HEMO FLAGS DIFF FINAL; LYMPH % 5.5 % (9.0-44.0); LYMPHOCYTE # 0.7 TH/MM3 (1.0-4.8); MEAN CELL VOLUME 92.6 FL (80.0-100.0); MEAN CORPUSCULAR HEMOGLOBIN 30.8 PG (27.0-34.0); MEAN CORPUSCULAR HGB CONC 33.3 % (32.0-36.0); MONO % 5.8 % (0.0-8.0); NEUT % 88.6 % (16.0-70.0); PLATELET COUNT 275 TH/MM3 (150-450); RED BLOOD COUNT 4.76 MIL/MM3 (4.00-5.30); RED CELL DISTRIBUTION WIDTH 13.3 % (11.6-17.2); WHITE BLOOD COUNT 11.9 TH/MM3 (4.0-11.0)
[2017-02-20 17:49] LABS: LYME IGG IMMUNOBLOT CSF None Detected bands (None Detected); LYME IGM IMMUNOBLOT CSF None Detected bands (None Detected)
[2017-02-20] MEDS ORDERED: diphenhydrAMINE HCL 50 MG/ML VIAL IV PUSH PRN (18:00)
[2017-02-20] MEDS: CALCIUM GLUCONATE INJ 2 GM in SODIUM CHLORIDE 0.9% INJ 100 ML IV SCH (18:11)
[2017-02-20] MEDS: ALBUMIN HUMAN 5% 25 GM/500 ML BOTTLE IV SCH (18:11)
[2017-02-20] MEDS: SODIUM CHLOR 0.9% 1000 ML INJ 1,000 ML IV SCH (18:12)
[2017-02-20] MEDS: HEPARIN SODIUM - 10,000 UNITS/ML 1ML VIAL IV FLUSH PRN (18:12)
[2017-02-20] MEDS: ANTICOAGULANT CITRATE DEXTROSE SOLN-A 1L OTHER SCH (18:13)
--- NOTE | 2017-02-20 18:22 | HHI.PR ---
Subjective Subjective Comments Patient awake and alert. at bedside. Mild muscle spasm but no significant pain. Patient denies any incontinence of bowel or bladder. She has mild urinary urgency. Feels better after getting up with physical therapy. Allergies: Coded Allergies: No Known Allergies (Unverified , 02/16/17) Review of Systems All other ROS: ROS reviewed as documented in chart Exam I&O / VS 02/19/17 02/19/17 02/20/17 15:00 23:00 07:00 Intake Total 420 ml 360 ml 240 ml Balance 420 ml 360 ml 240 ml Intake Oral 420 ml 360 ml 240 ml # Voids 2 2 1 # Bowel Movements 0 0 0 Vital Signs Date Time Temp Pulse Resp B/P Pulse Ox O2 Delivery O2 Flow Rate FiO2 02/20/17 16:00 97.4 61 20 170/77 92 02/20/17 12:00 97.9 76 20 137/85 94 02/20/17 08:00 97.0 62 20 180/88 94 02/20/17 04:36 97.8 67 17 168/83 93 02/20/17 01:13 73 188/90 94 02/20/17 00:30 97.0 72 17 183/93 95 02/19/17 20:43 97.0 54 18 169/83 92 General: No acute distress Skin: Other (no rash noted) Musculoskeletal: ROM (within functional limits), Swelling (None in the lower extremities) Psychiatric: Cooperative, Appropriate mood & affect Orientation: oriented to Self, oriented to Situation Neurologic: Speech (clear) Motor: Right Upper Extremity (5/5), Left Upper Extremity (5/5), Right Lower Extremity (4/5), Left Lower Extremity Objective Micro and Labs Laboratory Tests Test 02/20/17 15:51 White Blood Count 11.9 Red Blood Count 4.76 Hemoglobin 14.7 Hematocrit 44.1 Mean Corpuscular Volume 92.6 Mean Corpuscular Hemoglobin 30.8 Mean Corpuscular Hemoglobin 33.3 Concent Red Cell Distribution Width 13.3 Platelet Count 275 Mean Platelet Volume 8.6 Neutrophils (%) (Auto) 88.6 Lymphocytes (%) (Auto) 5.5 Monocytes (%) (Auto) 5.8 Eosinophils (%) (Auto) 0.0 Basophils (%) (Auto) 0.1 Neutrophils # (Auto) 10.5 Lymphocytes # (Auto) 0.7 Monocytes # (Auto) 0.7 Eosinophils # (Auto) 0.0 Basophils # (Auto) 0.0 CBC Comment DIFF FINAL Differential Comment Date/Time Procedure Status Source Growth 02/19/17 10:15 Gram Stain - Final Resulted Cerebral Spinal Fluid Lumbar Puncture 4 10:15 CSF Culture - Preliminary Resulted Cerebral Spinal Fluid Lumbar Puncture NO GROWTH IN 24 HOURS. 02/19/17 10:15 Fungal Smear - Final Resulted Cerebral Spinal Fluid Lumbar Puncture NO FUNGAL ELEMENTS SEEN. 02/19/17 10:15 Fungal Culture Resulted Cerebral Spinal Fluid Lumbar Puncture Pending 02/19/17 10:15 Acid Fast Stain - Final Resulted Cerebral Spinal Fluid Lumbar Puncture NO ACID FAST BACILLI SEEN 02/19/17 10:15 Mycobacterial Culture Resulted Cerebral Spinal Fluid Lumbar Puncture Pending Assessment and Plan Diagnosis: (1) Weakness of both lower extremities (2) Bilateral lower extremity pain Assessment 1. Progressive LE weakness. 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 For plasma exchange 2. Hypothyroidism 3. Hypertension 4. Osteoarthritis Plan 1. EMG nerve conduction studies completed 2. PT working of transfers and now max assist of 2 and ambulated 2 feet with rolling walker with max assist of 2. Balance is poor 3. OT for ADL's and now max assist for lower extremity dressing and standby assist for upper body dressing 4. May need LE bracing. Will follow 5. Receiving Lovenox for DVT prophylaxis. 6. Will need ongoing rehabilitation at discharge. Will follow in conjunction with case management regrading level of care. Paola Gay MD Feb 20, 2017 18:22
[2017-02-21] VITALS (8 sets, daily range): BP systolic 108–188; BP diastolic 56–94; PULSE 50–85; RESP 17–22; TEMP 96–98.2; O2SAT 92–96
[2017-02-21] MEDS: ACETAMINOPHEN/HYDROcodone 325 MG/5 MG TAB PO PRN ×4 (02:13→18:56)
[2017-02-21 05:29] LABS: HEMATOCRIT 43.5 % (35.0-46.0); MEAN CELL VOLUME 92.8 FL (80.0-100.0); MEAN CORPUSCULAR HEMOGLOBIN 31.4 PG (27.0-34.0); MEAN CORPUSCULAR HGB CONC 33.9 % (32.0-36.0); PLATELET COUNT 221 TH/MM3 (150-450); RED BLOOD COUNT 4.68 MIL/MM3 (4.00-5.30); RED CELL DISTRIBUTION WIDTH 13.8 % (11.6-17.2); REVIEW FLAG FINAL; WHITE BLOOD COUNT 11.4 TH/MM3 (4.0-11.0)
[2017-02-21 05:40] LABS: BICARBONATE 25.7 MEQ/L (21.0-32.0); POTASSIUM 3.7 MEQ/L (3.5-5.1)
[2017-02-21] MEDS: LEVOTHYROXINE SODIUM 50 MCG TAB PO SCH (06:21)
--- NOTE | 2017-02-21 07:03 | MB ---
cc: BABS SANCHEZ MD,BALJIT BURTON,STEPHANIE DIXON,CLAUS Bishop M.D. DATE OF CONSULTATION: 02/20/2017 DATE OF : [address] Babs Sanchez CHIEF COMPLAINT Dr. Burton requested a consultation for Ms. Terrazas for plasmapheresis and patient with sensory neuropathy and suspected transverse myelitis. HISTORY OF PRESENT ILLNESS: Mrs. Terrazas is an 86-year-old woman with hypertension, hypercholesterolemia, hypothyroidism. She complains of some claudication in her legs over the last several months. She denies any weakness or falls. A week ago she presented with lower extremity weakness, primarily in the left. She was unable to walk and was taken to [facility]. She had evaluation, no anatomic problem identified to account for her weakness. She was transferred to [place] for EMG evaluation by neurology. She has had weakness of her lower extremity bilaterally. She has no problems with her upper extremity. She was started on steroids. MRI at [facility] shows no cervical, thoracic, lumbar cord compression or central canal stenosis. MRI of brain showed no acute intracranial abnormality. A CTA of the abdomen and pelvis shows chronic total occlusion of the right superficial femoral artery, multifocal moderate to severe stenosis in the left superficial femoral artery. She was on anticoagulant therapy with Coumadin. Additional workup include lumbar puncture shows a mild increase in total protein. CT scan of the chest shows COPD changes with pleural based nodule on the right measuring 0.8 x 1.2 cm. There was low suspicion for malignancy. She had nerve conduction study and EMG shows findings consistent with mild axonal polyneuropathy. Since she is not better or worse since presentation a plasmapheresis for a myelopathy in case of a transverse myelitis was recommended. Ms. Terrazas subjectively thinks that she is better. She is still unable to move the left lower extremity. She denies a history of peripheral vascular disease although was confirmed by workup at [facility]. She quit smoking a long time ago thus the findings of COPD and imaging study. She denies any headaches or vision changes. She reports feeling well prior to her admission. REVIEW OF SYSTEMS The rest of her review of systems is negative up. PAST MEDICAL HISTORY: 1. Past medical history of COPD 2. Peripheral vascular disease 3. Hypothyroidism 4. Hypertension 5. Osteoarthritis. 6. Poly neuropathy. PAST SURGICAL HISTORY Hysterectomy Vas cath placement. ALLERGIES NO KNOWN DRUG ALLERGIES. CURRENT MEDICATIONS Include 1. Albumin. 2. Calcium gluconate 3. ACD. 4. Norvasc. 5. Catapres p.r.n. 6. Baclofen p.r.n. 7. Methylprednisolone 8. Prednisolone. 9. Protonix. 10. Lopressor. 11. Lovenox on hold. 12. Colace. 13. Synthroid. 14. [place] p.r.n. FAMILY HISTORY Brother has CVA. Sister with COPD. He denies any significant family history of venous thromboembolic event. SOCIAL HISTORY: , lives with her . She has a 30 pack-year smoking history, quit many years ago. Drinks alcohol rarely. Denies any illicit drug use. PHYSICAL EXAMINATION VITAL SIGNS: Temperature 97.4 heart rate 61, respiratory rate 20, blood pressure 170/77, saturation 92% IN GENERAL: Ms. Terrazas is a well-developed elderly woman in no acute distress of vas cath was placed in their right internal jugular. HEAD, EYES, EARS, NOSE, AND THROAT: Pupils are reactive to light and accommodation. Oropharynx is clear. NECK: Neck is supple. LUNGS: Clear. CARDIOVASCULAR SYSTEM: Exam reveals normal rate, rhythm. ABDOMEN: The abdomen is benign. EXTREMITIES: Lower extremity with mild asymmetry left leg is thinner, less developed then the right. NEUROLOGIC EXAMINATION: Shows weakness in the lower extremity right leg has weakness in flexion and dorsiflexion. Left leg more severe weakness and dorsiflexion, weakness and bending the left knee. She is able to hold the left leg against gravity. LABORATORY DATA CBC is essentially normal BUN of 15, creatinine 0.76, glucose mildly elevated 132, AST 42. PT/INR is normal. ASSESSMENT/PLAN: Ms. Terrazas is an 86-year-old woman with multiple medical problems described above. She is diagnosed with COPD and peripheral vascular disease, is seen by the CT angiogram performed for workup of her lower extremity weakness. Hematology/Oncology is consulted for assistance in plasmapheresis and possibility of transverse myelitis. Workup is ongoing coordinated by neurology and physical medicine rehab with Dr. Gay. I discussed with Mrs. Terrazas and her family present at the consultation. The risk and benefit of plasmapheresis. She is in agreement. She has vas cath placed by interventional radiology and is about to start her first dose pheresis today coordinated through [place] [facility]. Case was discussed our earlier with Dr. Burton. MD QUINTON Jurado/yg /7:16 PM /6:46 AM
[2017-02-21] MEDS: PANTOPRAZOLE SOD 20 MG DELAYED RELEASE TAB PO SCH (08:05)
[2017-02-21] MEDS: amLODIPine BESYLATE 5 MG TAB PO SCH (08:05)
[2017-02-21] MEDS: DOCUSATE SODIUM 100 MG CAP PO SCH ×2 (08:05→21:06)
[2017-02-21] MEDS: METOPROLOL TARTRATE 50 MG TAB PO SCH (08:05)
[2017-02-21] MEDS: ENOXAPARIN SODIUM 80 MG/0.8 ML SYRINGE SQ SCH ×2 (08:08→21:06)
[2017-02-21] MEDS: SODIUM CHLORIDE 0.9% FLUSH 10 ML FLUSH IV FLUSH SCH ×2 (08:09→21:08)
--- NOTE | 2017-02-21 09:49 | HHI.PR ---
Subjective Remarks Patient reports feeling slightly better today. Still having muscle spasm involving the left upper thigh but is better with the muscle relaxant. Objective Vitals Vital Signs Date Time Temp Pulse Resp B/P Pulse Ox O2 Delivery O2 Flow Rate FiO2 02/21/17 07:07 96.0 80 17 183/88 92 02/21/17 03:57 96.5 53 18 188/94 94 02/21/17 03:57 96.5 53 18 188/83 94 02/21/17 00:00 96.3 55 20 137/83 95 02/20/17 20:45 97.3 74 17 163/85 95 02/20/17 16:00 97.4 61 20 170/77 92 02/20/17 12:00 97.9 76 20 137/85 94 I/O 02/20/17 02/20/17 02/20/17 02/21/17 02/21/17 02/21/17 07:00 15:00 23:00 07:00 15:00 23:00 Intake Total 240 ml 480 ml 240 ml 240 ml Balance 240 ml 480 ml 240 ml 240 ml Intake Oral 240 ml 480 ml 240 ml 240 ml # Voids 1 2 2 1 # Bowel Movements 0 0 0 0 Result Diagram: 02/21/17 0451 02/21/17 0451 Objective Remarks GENERAL: This is a well-nourished, well-developed patient, in no apparent distress. CARDIOVASCULAR: Normal rate and regular rhythm without murmurs, gallops, or rubs. RESPIRATORY: Good respiratory efforts. Breath sounds equal and clear to auscultation bilaterally. GASTROINTESTINAL: Abdomen soft, non-tender, non-distended. Normal active bowel sounds MUSCULOSKELETAL: Extremities without cyanosis, or edema. NEURO: Alert & Oriented x4 to person, place, time, situation. Can move all extremities but left lower extremity hip joint range of motion is limited due to pain and some slight weakness. PSYCH: Appropriate mood and affect. A/P Problem List: (1) Weakness of both lower extremities ICD Code: R29.898 Status: Acute (2) Bilateral lower extremity pain ICD Code: M79.604 Status: Acute (3) Left leg DVT ICD Code: I82.402 Status: Acute (4) Hypothyroidism ICD Code: E03.9 Status: Chronic (5) Hypertension ICD Code: I10 Status: Chronic Assessment and Plan 86-year-old female with: Lower extremity weakness and pain - Dr. Burton, neurologist following. Likely myelopathy with possible cord infarct. Possible transverse myelitis. Patient underwent plasma exchange yesterday per neurology and hematology. Per patient will have another session tomorrow. EMG apparently was neg. status post LP. Continue rehabilitation efforts.. DVT left lower extremity per review of records -Anticoagulant was on hold for lumbar puncture and Vas-Cath. Resume Lovenox today. Hypertension: Blood pressure uncontrolled. -Continue metoprolol. Add Norvasc. Monitor closely. Hypothyroidism - on home Synthroid - TSH 0.880, T4 8.2 on 02/15/17 DVT prophylaxis -On Lovenox PT/OT following. Rehab physician also on case. Appreciate assistance Francoise Sanchez MD Feb 21, 2017 09:49
[2017-02-21] MEDS: methylPREDNISolone SO SUCC INJ 1,000 MG in DEXTROSE 5% IN WATER INJ 250 ML IV SCH ×2 (11:06)
--- NOTE | 2017-02-21 17:24 | HHI.PR ---
Subjective Remarks oob in chair had aphersis yesterday feels somewhat stronger Objective Vital Signs Date Time Temp Pulse Resp B/P Pulse Ox O2 Delivery O2 Flow Rate FiO2 02/21/17 11:15 98.2 50 17 182/81 95 02/21/17 07:07 96.0 80 17 183/88 92 02/21/17 03:57 96.5 53 18 188/94 94 02/21/17 03:57 96.5 53 18 188/83 94 02/21/17 00:00 96.3 55 20 137/83 95 02/20/17 20:45 97.3 74 17 163/85 95 I/O 02/20/17 02/20/17 02/20/17 02/21/17 02/21/17 02/21/17 07:00 15:00 23:00 07:00 15:00 23:00 Intake Total 240 ml 480 ml 240 ml 240 ml Balance 240 ml 480 ml 240 ml 240 ml Intake Oral 240 ml 480 ml 240 ml 240 ml # Voids 1 2 2 1 # Bowel Movements 0 0 0 0 Result Diagram: 02/21/17 0451 02/21/17 045 Objective Remarks awake and alert sitting in a chair motor ue intact legs left 3/5 right 3+4-/5 trace dtr left 1+ right Assessment and Plan Assessment and Plan possible TM -cont aphersis PT eval. cont AC now with lovenox 70mg q12. Dr Burton back on Thursday. Gina Juares MD Feb 21, 2017 17:24
[2017-02-21] MEDS: BACLOFEN 10 MG TAB PO PRN (21:06)
[2017-02-21 23:51] LABS: HU (NEURONAL NUCLEAR) WESTBLOT NEGATIVE (NEGATIVE); NEURONAL NUCLEAR(Ri) AB SCREEN FLUORESCENCE NOTED (NEGATIVE); PURKINJE CELL (YO) AB FLUORESCENCE NOTED (NEGATIVE); PURKINJE CELL(YO)IGG AB TITER ND titer (<1:40); YO WESTBLOT NEGATIVE (NEGATIVE)
[2017-02-22] VITALS: BP 156/74; PULSE 53; RESP 22; TEMP 96.5; O2SAT 98
[2017-02-22] MEDS: ACETAMINOPHEN/HYDROcodone 325 MG/5 MG TAB PO PRN ×3 (03:26→22:19)
[2017-02-22] MEDS: LEVOTHYROXINE SODIUM 50 MCG TAB PO SCH (03:27)
[2017-02-22 04:00] VITALS: BP 139/69; PULSE 58; RESP 16; TEMP 96.3; O2SAT 96
[2017-02-22 08:13] VITALS: BP 179/85; PULSE 58; RESP 16; TEMP 97.5; O2SAT 94
[2017-02-22] MEDS: PANTOPRAZOLE SOD 20 MG DELAYED RELEASE TAB PO SCH (08:59)
[2017-02-22] MEDS: METOPROLOL TARTRATE 50 MG TAB PO SCH (08:59)
[2017-02-22] MEDS: SODIUM CHLORIDE 0.9% FLUSH 10 ML FLUSH IV FLUSH SCH ×2 (08:59→20:43)
[2017-02-22] MEDS: DOCUSATE SODIUM 100 MG CAP PO SCH ×2 (08:59→20:43)
[2017-02-22] MEDS: amLODIPine BESYLATE 5 MG TAB PO SCH (08:59)
[2017-02-22] MEDS: ENOXAPARIN SODIUM 80 MG/0.8 ML SYRINGE SQ SCH ×2 (09:00→20:42)
[2017-02-22 10:38] LABS: CSF CRYPTOCOCCUS AG CONF ND (NOT DETECTD)
[2017-02-22] MEDS: methylPREDNISolone SO SUCC INJ 1,000 MG in DEXTROSE 5% IN WATER INJ 250 ML IV SCH ×2 (11:16)
[2017-02-22 11:53] VITALS: BP 132/63; PULSE 56; RESP 16; TEMP 95.3; O2SAT 96
--- NOTE | 2017-02-22 14:39 | HHI.PR ---
Subjective Remarks Patient reports feeling slightly stronger today. Pain in the left leg is better. No nausea or vomiting. Objective Vitals Vital Signs Date Time Temp Pulse Resp B/P Pulse Ox O2 Delivery O2 Flow Rate FiO2 02/22/17 11:53 95.3 56 16 132/63 96 02/22/17 08:13 97.5 58 16 179/85 94 02/22/17 04:00 96.3 58 16 139/69 96 02/22/17 00:00 96.5 53 22 156/74 98 02/21/17 20:00 96.6 85 22 108/57 96 02/21/17 17:20 71 02/21/17 16:15 96.6 55 17 134/56 94 I/O 02/21/17 02/21/17 02/21/17 02/22/17 02/22/17 02/22/17 07:00 15:00 23:00 07:00 15:00 23:00 Intake Total 240 ml 640 ml 780 ml 240 ml Balance 240 ml 640 ml 780 ml 240 ml Intake Oral 240 ml 640 ml 780 ml 240 ml # Voids 1 2 1 0 # Bowel Movements 0 0 0 0 Result Diagram: 02/21/17 0451 02/21/17 0451 Objective Remarks GENERAL: This is a well-nourished, well-developed patient, in no apparent distress. CARDIOVASCULAR: Normal rate and regular rhythm without murmurs, gallops, or rubs. RESPIRATORY: Good respiratory efforts. Breath sounds equal and clear to auscultation bilaterally. GASTROINTESTINAL: Abdomen soft, non-tender, non-distended. Normal active bowel sounds MUSCULOSKELETAL: Extremities without cyanosis, or edema. NEURO: Alert & Oriented x4 to person, place, time, situation. Can move all extremities but left lower extremity hip joint range of motion is limited due to pain and some slight weakness. PSYCH: Appropriate mood and affect. A/P Problem List: (1) Weakness of both lower extremities ICD Code: R29.898 Status: Acute (2) Bilateral lower extremity pain ICD Code: M79.604 Status: Acute (3) Left leg DVT ICD Code: I82.402 Status: Acute (4) Hypothyroidism ICD Code: E03.9 Status: Chronic (5) Hypertension ICD Code: I10 Status: Chronic Assessment and Plan 86-year-old female with: Lower extremity weakness and pain - Dr. Burton, neurologist following. Likely myelopathy with possible cord infarct. Possible transverse myelitis. Patient undergoing plasma exchange per neurology and hematology. EMG apparently was neg. status post LP. Continue rehabilitation efforts.. DVT left lower extremity -Continue therapeutic Lovenox. Hypertension: -Continue metoprolol. Blood pressure better since adding Norvasc. Monitor closely. Hypothyroidism - on home Synthroid - TSH 0.880, T4 8.2 on 02/15/17 DVT prophylaxis -On Lovenox PT/OT following. Rehab physician also on case. Appreciate assistance Francoise Sanchez MD Feb 22, 2017 14:39
[2017-02-22 16:05] VITALS: BP 134/63; PULSE 59; RESP 16; TEMP 96.2; O2SAT 97
[2017-02-22] MEDS: ALBUMIN HUMAN 5% 25 GM/500 ML BOTTLE IV SCH (17:10)
[2017-02-22] MEDS: ANTICOAGULANT CITRATE DEXTROSE SOLN-A 1L OTHER SCH (17:10)
[2017-02-22] MEDS: SODIUM CHLOR 0.9% 1000 ML INJ 1,000 ML IV SCH (17:11)
[2017-02-22] MEDS: CALCIUM GLUCONATE INJ 2 GM in SODIUM CHLORIDE 0.9% INJ 100 ML IV SCH (17:11)
--- NOTE | 2017-02-22 17:36 | PD.ONC.PN ---
Subjective Subjective Remarks Feels stronger. Able to move L leg better. Seen during pheresis. Objective Data Date Time Temp Pulse Resp B/P Pulse Ox O2 Delivery O2 Flow Rate FiO2 02/22/17 16:05 96.2 59 16 134/63 97 02/22/17 11:53 95.3 56 16 132/63 96 02/22/17 08:13 97.5 58 16 179/85 94 02/22/17 04:00 96.3 58 16 139/69 96 02/22/17 00:00 96.5 53 22 156/74 98 02/21/17 20:00 96.6 85 22 108/57 96 02/22/17 02/22/17 02/22/17 07:00 15:00 23:00 Intake Total 240 ml 720 ml Balance 240 ml 720 ml Result Diagram: 02/21/17 0451 02/21/17 0451 Administered Medications Medications (Trade) Dose Ordered Sig/Jaron Route PRN Reason Start Time Stop Time Status Last Admin Dose Admin Sodium Chloride (NS Flush) 2 ml BID IV FLUSH 02/17/17 09:00 02/22/17 08:59 Levothyroxine Sodium (Synthroid) 50 mcg DAILY@06 PO 02/17/17 06:00 02/22/17 03:27 Losartan Potassium (Cozaar) 50 mg DAILY PO 02/17/17 09:00 Hold 02/20/17 10:14 Metoprolol Tartrate (Lopressor) 50 mg DAILY PO 02/17/17 09:00 02/22/17 08:59 Acetaminophen/ Hydrocodone Bitart ([place] 5-325 Mg) 1 tab Q6H PRN PO pain >5 02/17/17 00:45 02/22/17 14:47 Docusate Sodium (Colace) 100 mg BID PO 02/17/17 09:00 02/22/17 08:59 Magnesium Hydroxide (Milk Of Magnesia Liq) 30 ml DAILY PRN PO CONSTIPATION 02/17/17 01:45 02/20/17 10:14 Miscellaneous (Pill Splitter) 1 ea UNSCH PRN OTHER SEE LABEL COMMENTS 02/17/17 08:15 02/17/17 10:12 Pantoprazole Sodium 20 mg 20 mg DAILY PO 02/17/17 10:00 02/22/17 08:59 Methylprednisolone Sodium Succinate/ Dextrose (SoluMEDROL INJ/ D5W Inj) 266 ml @ 532 mls/hr Q24H IV 02/17/17 11:00 02/22/17 11:16 Baclofen (Lioresal) 5 mg Q8HR PRN PO spasms 02/20/17 08:45 02/21/17 21:06 Amlodipine Besylate (Norvasc) 5 mg DAILY PO 02/20/17 12:00 02/22/17 08:59 Clonidine (Catapres) 0.1 mg Q6H PRN PO SBP> OR = 180, DBP> OR = 100 02/20/17 11:30 02/21/17 11:43 Albumin Human 100 gm 100 gm Q48H IV 02/20/17 18:00 02/28/17 18:01 02/22/17 17:10 Calcium Gluconate 2 gm/Sodium Chloride 120 ml @ 90 mls/hr Q48H IV 02/20/17 18:00 02/28/17 19:19 02/22/17 17:11 Sodium Chloride (NS 1000 ml Inj) 1,000 ml @ 0 mls/hr Q48H IV 02/20/17 18:00 03/01/17 23:59 02/22/17 17:11 Anticoagulant Citrate Dextose Felicia A (Acd Formula Inj) 1,000 ml Q48H OTHER 02/20/17 18:00 02/28/17 18:01 02/22/17 17:10 Heparin Sodium (Porcine) (Heparin Inj) 5,000 units UNSCH PRN IV FLUSH FLUSH AFTER USING IV ACCESS 02/20/17 18:00 02/28/17 18:01 02/20/17 18:12 Enoxaparin Sodium (Lovenox Inj) 70 mg Q12H SQ 02/21/17 21:00 02/22/17 09:00 Objective Remarks GENERAL: Well-nourished, elderly, well-developed patient. SKIN: Warm and dry. HEAD: Normocephalic. EYES: No scleral icterus. No injection or drainage. NECK: Supple, trachea midline. No JVD or lymphadenopathy. LYMPHATIC: No adenopathy. CARDIOVASCULAR: Regular rate and rhythm without murmurs. RESPIRATORY: Breath sounds equal bilaterally. No accessory muscle use. GASTROINTESTINAL: Abdomen soft, non-tender, nondistended. EXTREMITIES: No cyanosis, or edema. MUSCULOSKELETAL: Adequate muscle tone. NEURO: Weakness BL LE. L leg weaker, weaker dorsiflexion on L leg. PSYCHIATRIC: Appropriate mood and affect; insight and judgment normal. Assessment/Plan Problem List: (1) Weakness of both lower extremities Status: Acute Plan: Transverse myelitis. Started on plasma pheresis today is second treatment. Pt doing well feels stronger, leg moving better, temporally related to starting pheresis. Assessment 86 y/o female with LE weakness, L>R - diff dx transverse myelitis. Plan Continue pheresis as planned. Patient tolerating treatment well. Melina Mir MD Feb 22, 2017 17:36
[2017-02-22 20:30] VITALS: BP 176/83; PULSE 55; RESP 16; TEMP 97.1; O2SAT 93
[2017-02-23] MEDS: BACLOFEN 10 MG TAB PO PRN (00:33)
[2017-02-23 00:40] VITALS: BP 178/84; PULSE 54; RESP 16; TEMP 96.8; O2SAT 95
[2017-02-23] MEDS: ACETAMINOPHEN/HYDROcodone 325 MG/5 MG TAB PO PRN ×4 (03:55→21:56)
[2017-02-23 04:30] VITALS: BP 179/84; PULSE 52; RESP 16; TEMP 97; O2SAT 96
[2017-02-23] MEDS: LEVOTHYROXINE SODIUM 50 MCG TAB PO SCH (06:22)
[2017-02-23 08:00] VITALS: BP 142/67; PULSE 83; RESP 17; TEMP 96.8; O2SAT 94
--- NOTE | 2017-02-23 08:16 | HHI.PR ---
Subjective Remarks inr 1.0 yest Objective Vital Signs Date Time Temp Pulse Resp B/P Pulse Ox O2 Delivery O2 Flow Rate FiO2 02/23/17 04:30 97.0 52 16 179/84 96 02/23/17 00:40 96.8 54 16 178/84 95 02/22/17 20:30 97.1 55 16 176/83 93 02/22/17 18:45 Room Air 02/22/17 16:05 96.2 59 16 134/63 97 02/22/17 11:53 95.3 56 16 132/63 96 02/22/17 08:13 97.5 58 16 179/85 94 I/O 02/22/17 02/22/17 02/22/17 02/23/17 02/23/17 02/23/17 07:00 15:00 23:00 07:00 15:00 23:00 Intake Total 240 ml 720 ml 120 ml 120 ml Balance 240 ml 720 ml 120 ml 120 ml Intake Oral 240 ml 720 ml 120 ml 120 ml # Voids 0 2 1 0 # Bowel Movements 0 2 0 0 Result Diagram: 02/21/17 0451 02/21/17 045 Objective Remarks bue nl ip 3+ r 3- left knee up 5/5 r 4/5 left quad 4+bilat ham 4- to 3+ bilat r ta 4+ left old foot drop 1-2 no change pin intact ble x medial r lower leg left kj 2++ r 1+ no change r bicep refles 2 no change = Assessment and Plan Assessment and Plan impp emg sensory neuropathy ow essentially nl yest likley myelopathy possible cord infarct i think most likely sudden onset cta [facility] pichardo i dw rads and they felt no ca in abd or pelvis will check ct chest here nodule on right needs repeat [address] 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 should we start coumadin or other anticoag? for dvt will defer to heme and med team Sukhdev Burton MD Feb 23, 2017 08:16
[2017-02-23] MEDS: DOCUSATE SODIUM 100 MG CAP PO SCH ×2 (09:00→21:55)
[2017-02-23] MEDS: GABAPENTIN 300 MG CAP PO SCH ×3 (09:56→21:55)
[2017-02-23] MEDS: METOPROLOL TARTRATE 50 MG TAB PO SCH (09:56)
[2017-02-23] MEDS: amLODIPine BESYLATE 5 MG TAB PO SCH (09:56)
[2017-02-23] MEDS: PANTOPRAZOLE SOD 20 MG DELAYED RELEASE TAB PO SCH (09:56)
[2017-02-23] MEDS: SODIUM CHLORIDE 0.9% FLUSH 10 ML FLUSH IV FLUSH SCH ×2 (09:57→21:55)
[2017-02-23 12:00] VITALS: BP 155/65; PULSE 51; RESP 16; TEMP 96.6; O2SAT 97
--- NOTE | 2017-02-23 15:16 | HHI.PR ---
Subjective Remarks Patient believes she is getting a little stronger. Still having persistent cramping pain over the left thigh. Next scheduled plasmapheresis for tomorrow. Objective Vitals Vital Signs Date Time Temp Pulse Resp B/P Pulse Ox O2 Delivery O2 Flow Rate FiO2 02/23/17 08:00 96.8 83 17 142/67 94 02/23/17 04:30 97.0 52 16 179/84 96 02/23/17 00:40 96.8 54 16 178/84 95 02/22/17 20:30 97.1 55 16 176/83 93 02/22/17 18:45 Room Air 02/22/17 16:05 96.2 59 16 134/63 97 I/O 02/22/17 02/22/17 02/22/17 02/23/17 02/23/17 02/23/17 07:00 15:00 23:00 07:00 15:00 23:00 Intake Total 240 ml 720 ml 120 ml 120 ml Balance 240 ml 720 ml 120 ml 120 ml Intake Oral 240 ml 720 ml 120 ml 120 ml # Voids 0 2 1 0 # Bowel Movements 0 2 0 0 Result Diagram: 02/21/1745002/21/17 045 Objective Remarks GENERAL: This is a well-nourished, well-developed patient, in no apparent distress. CARDIOVASCULAR: Normal rate and regular rhythm without murmurs, gallops, or rubs. RESPIRATORY: Good respiratory efforts. Breath sounds equal and clear to auscultation bilaterally. GASTROINTESTINAL: Abdomen soft, non-tender, non-distended. Normal active bowel sounds MUSCULOSKELETAL: Extremities without cyanosis, or edema. NEURO: Alert & Oriented x4 to person, place, time, situation. Can move all extremities but left lower extremity hip joint range of motion is limited due to pain and some weakness. PSYCH: Appropriate mood and affect. A/P Problem List: (1) Weakness of both lower extremities ICD Code: R29.898 Status: Acute (2) Bilateral lower extremity pain ICD Code: M79.604 Status: Acute (3) Left leg DVT ICD Code: I82.402 Status: Acute (4) Hypothyroidism ICD Code: E03.9 Status: Chronic (5) Hypertension ICD Code: I10 Status: Chronic Assessment and Plan 86-year-old female with: Lower extremity weakness and pain - Dr. Burton, neurologist following. Likely myelopathy with possible cord infarct. Possible transverse myelitis. Patient undergoing plasma exchange per neurology and hematology. EMG apparently was neg. status post LP. Continue rehabilitation efforts.. DVT left lower extremity -Continue therapeutic Lovenox. - Appreciate hematology following Hypertension: -Continue metoprolol. Increase Norvasc for better blood pressure control. Monitor closely. Hypothyroidism - on home Synthroid - TSH 0.880, T4 8.2 on 02/15/17 DVT prophylaxis -On Lovenox PT/OT following. Rehab physician also on case. Appreciate assistance Francoise Sanchez MD Feb 23, 2017 15:16
[2017-02-23 16:00] VITALS: BP 123/56; PULSE 60; RESP 16; TEMP 95.9; O2SAT 97
[2017-02-23 20:55] VITALS: BP 134/63; PULSE 58; RESP 17; TEMP 97.1; O2SAT 96
[2017-02-23] MEDS: ENOXAPARIN SODIUM 60 MG/0.6 ML SYRINGE SQ SCH (21:55)
[2017-02-24 00:55] VITALS: BP 121/58; PULSE 60; RESP 17; TEMP 97; O2SAT 96
[2017-02-24] MEDS: ACETAMINOPHEN/HYDROcodone 325 MG/5 MG TAB PO PRN ×3 (03:11→21:47)
[2017-02-24] MEDS: LEVOTHYROXINE SODIUM 50 MCG TAB PO SCH (05:41)
[2017-02-24 07:55] VITALS: BP 121/55; PULSE 64; RESP 16; TEMP 96.8; O2SAT 96
[2017-02-24 08:01] LABS: HEMATOCRIT 39.1 % (35.0-46.0); MEAN CELL VOLUME 91.9 FL (80.0-100.0); MEAN CORPUSCULAR HEMOGLOBIN 31.6 PG (27.0-34.0); MEAN CORPUSCULAR HGB CONC 34.4 % (32.0-36.0); PLATELET COUNT 192 TH/MM3 (150-450); RED BLOOD COUNT 4.25 MIL/MM3 (4.00-5.30); RED CELL DISTRIBUTION WIDTH 13.9 % (11.6-17.2); REVIEW FLAG FINAL; WHITE BLOOD COUNT 11.9 TH/MM3 (4.0-11.0)
[2017-02-24 08:08] LABS: APTT (PATIENT) 39.3 SEC (24.3-30.1); INTERNATIONAL NORMALIZED RATIO 1.1 RATIO; PROTHROMBIN TIME - PATIENT 11.7 SEC (9.8-11.6)
[2017-02-24 08:22] LABS: BICARBONATE 26.7 MEQ/L (21.0-32.0); POTASSIUM 3.6 MEQ/L (3.5-5.1)
[2017-02-24] MEDS: ENOXAPARIN SODIUM 60 MG/0.6 ML SYRINGE SQ SCH ×2 (08:54→21:47)
[2017-02-24] MEDS: amLODIPine BESYLATE 5 MG TAB PO SCH (09:00)
[2017-02-24] MEDS: DOCUSATE SODIUM 100 MG CAP PO SCH ×2 (09:00→21:46)
[2017-02-24] MEDS: GABAPENTIN 300 MG CAP PO SCH ×3 (09:45→21:46)
[2017-02-24] MEDS: METOPROLOL TARTRATE 50 MG TAB PO SCH (09:45)
[2017-02-24] MEDS: PANTOPRAZOLE SOD 20 MG DELAYED RELEASE TAB PO SCH (09:45)
[2017-02-24] MEDS: SODIUM CHLORIDE 0.9% FLUSH 10 ML FLUSH IV FLUSH SCH ×2 (09:45→21:46)
--- NOTE | 2017-02-24 11:14 | PD.ONC.PN ---
Subjective Subjective Remarks Afebrile overnight. Patient resting comfortably without complaint. She is reporting improving symptoms with plasma exchange. Yesterday she was able to walk across the room with assistance. Objective Data Date Time Temp Pulse Resp B/P Pulse Ox O2 Delivery O2 Flow Rate FiO2 02/24/17 07:55 96.8 64 16 121/55 96 02/24/17 00:55 97.0 60 17 121/58 96 02/23/17 20:55 97.1 58 17 134/63 96 02/23/17 16:00 95.9 60 16 123/56 97 02/23/17 12:00 96.6 51 16 155/65 97 02/24/17 02/24/17 02/24/17 07:00 15:00 23:00 Intake Total 120 ml Balance 120 ml Result Diagram: 02/24/1725 02/24/1720 Laboratory Results Laboratory Tests Test 02/24/17 02/24/17 07:20 07:25 Prothrombin Time 11.7 SEC Prothromb Time International 1.1 RATIO Ratio Activated Partial 39.3 SEC Thromboplast Time Fibrinogen 95 mg/dL Sodium Level 139 MEQ/L Potassium Level 3.6 MEQ/L Chloride Level 105 MEQ/L Carbon Dioxide Level 26.7 MEQ/L Anion Gap 7 MEQ/L Blood Urea Nitrogen 20 MG/DL Creatinine 0.54 MG/DL Estimat Glomerular Filtration 107 ML/MIN Rate Random Glucose 87 MG/DL Calcium Level 7.9 MG/DL White Blood Count 11.9 TH/MM3 Red Blood Count 4.25 MIL/MM3 Hemoglobin 13.4 GM/DL Hematocrit 39.1 % Mean Corpuscular Volume 91.9 FL Mean Corpuscular Hemoglobin 31.6 PG Mean Corpuscular Hemoglobin 34.4 % Concent Red Cell Distribution Width 13.9 % Platelet Count 192 TH/MM3 Mean Platelet Volume 8.4 FL Administered Medications Medications (Trade) Dose Ordered Sig/Jaron Route PRN Reason Start Time Stop Time Status Last Admin Dose Admin Sodium Chloride (NS Flush) 2 ml BID IV FLUSH 02/17/17 09:00 02/24/17 09:45 Levothyroxine Sodium (Synthroid) 50 mcg DAILY@06 PO 02/17/17 06:00 02/24/17 05:41 Losartan Potassium (Cozaar) 50 mg DAILY PO 02/17/17 09:00 Hold 02/20/17 10:14 Metoprolol Tartrate (Lopressor) 50 mg DAILY PO 02/17/17 09:00 02/24/17 09:45 Acetaminophen/ Hydrocodone Bitart ([place] 5-325 Mg) 1 tab Q6H PRN PO pain >5 02/17/17 00:45 02/24/17 03:11 Docusate Sodium (Colace) 100 mg BID PO 02/17/17 09:00 02/23/17 21:55 Magnesium Hydroxide (Milk Of Magnesia Liq) 30 ml DAILY PRN PO CONSTIPATION 02/17/17 01:45 02/20/17 10:14 Miscellaneous (Pill Splitter) 1 ea UNSCH PRN OTHER SEE LABEL COMMENTS 02/17/17 08:15 02/17/17 10:12 Pantoprazole Sodium (Protonix) 20 mg DAILY PO 02/17/17 10:00 02/24/17 09:45 Baclofen (Lioresal) 5 mg Q8HR PRN PO spasms 02/20/17 08:45 02/23/17 00:33 Amlodipine Besylate (Norvasc) 5 mg DAILY PO 02/20/17 12:00 02/23/17 09:56 Clonidine (Catapres) 0.1 mg Q6H PRN PO SBP> OR = 180, DBP> OR = 100 02/20/17 11:30 02/21/17 11:43 Albumin Human 100 gm 100 gm Q48H IV 02/20/17 18:00 02/28/17 18:01 02/22/17 17:10 Calcium Gluconate 2 gm/Sodium Chloride 120 ml @ 90 mls/hr Q48H IV 02/20/17 18:00 02/28/17 19:19 02/22/17 17:11 Sodium Chloride (NS 1000 ml Inj) 1,000 ml @ 0 mls/hr Q48H IV 02/20/17 18:00 03/01/17 23:59 02/22/17 17:11 Anticoagulant Citrate Dextose Felicia A (Acd Formula Inj) 1,000 ml Q48H OTHER 02/20/17 18:00 02/28/17 18:01 02/22/17 17:10 Heparin Sodium (Porcine) (Heparin Inj) 5,000 units UNSCH PRN IV FLUSH FLUSH AFTER USING IV ACCESS 02/20/17 18:00 02/28/17 18:01 02/20/17 18:12 Gabapentin (Neurontin) 300 mg TID@09,13,21 PO 02/23/17 09:00 02/24/17 09:45 Enoxaparin Sodium (Lovenox Inj) 60 mg Q12HR SQ 02/23/17 21:00 02/23/17 21:55 Objective Remarks GENERAL:Pleasant elderly female, sitting up in bed in nad. SKIN: Warm and dry. vascath in place no bleeding. HEAD: Normocephalic. EYES: No injection or drainage. NECK: Supple, trachea midline. CARDIOVASCULAR: Regular rate and rhythm RESPIRATORY: Breath sounds equal bilaterally. No accessory muscle use. GASTROINTESTINAL: Abdomen soft, non-tender, nondistended. EXTREMITIES: No cyanosis NEUROLOGICAL: awake and alert, normal speech. moving extremities. Assessment/Plan Problem List: (1) Weakness of both lower extremities Status: Acute Plan: Transverse myelitis. 02/24: PEX #3 today. Pt doing well feels stronger, leg moving better, temporally related to starting pheresis. Assessment 86 y/o female with LE weakness, L>R - diff dx transverse myelitis. Plan 1. PEX #3 today 2. monitor fibrinogen and coags 3. supportive care Attending Statement The exam, history, and the medical decision-making described in the above note were completed with the assistance of the mid-level provider. I reviewed and agree with the findings presented. I attest that I had a [id number] encounter with the patient on the same day, and personally performed and documented my assessment and findings in the medical record. Pt seen and examined in AM before pheresis. c/o peripheral neuropathy of both legs last night, relieved with muscle relaxant. Able to walk to door yesterday. Denies any bleeding. Discussed concern for bleeding with pheresis and anticoagulation. Agree with Dr. Burton need to start Coumadin, anticipate Coumadin will be reversed for removal of catheter. For this reason LMWH continued for now- on hold in AM of pheresis, dose rounded down to nearest syringe size. Discussed laboratory evaluation planned before and after pheresis. Procoagulant and anticoagulant proteins are pheresed, net effect uncertain. Pt with competing needs for pheresis and continue anticoagulation for newly dx DVT. Fibrinogen low noted, intentional effect of LMWH anticoagulation for DVT. Noted risk and benefit of cryoprecipitate. Consider recombinant fibrinogen if needed for bleeding. Rossana Perry Feb 24, 2017 11:14 Melina Mir MD Feb 24, 2017 23:51
[2017-02-24 11:29] VITALS: BP 128/61; PULSE 60; RESP 16; TEMP 96.3; O2SAT 98
[2017-02-24] MEDS: HEPARIN SODIUM - 10,000 UNITS/ML 1ML VIAL IV FLUSH PRN (12:00)
[2017-02-24 16:44] VITALS: BP 111/55; PULSE 60; RESP 18; TEMP 95.6; O2SAT 96
--- NOTE | 2017-02-24 17:02 | HHI.PR ---
Subjective Remarks Patient reports feeling better. Believes she is getting stronger. Participating with PT. Objective Vitals Vital Signs Date Time Temp Pulse Resp B/P Pulse Ox O2 Delivery O2 Flow Rate FiO2 02/24/17 16:44 95.6 60 18 111/55 96 02/24/17 11:29 96.3 60 16 128/61 98 02/24/17 07:55 96.8 64 16 121/55 96 02/24/17 00:55 97.0 60 17 121/58 96 02/23/17 20:55 97.1 58 17 134/63 96 I/O 02/23/17 02/23/17 02/23/17 02/24/17 02/24/17 02/24/17 07:00 15:00 23:00 07:00 15:00 23:00 Intake Total 120 ml 480 ml 240 ml 120 ml Output Total 400 ml Balance 120 ml 80 ml 240 ml 120 ml Intake Oral 120 ml 480 ml 240 ml 120 ml Output Urine Total 400 ml # Voids 0 1 1 # Bowel Movements 0 1 0 Result Diagram: 02/24/17 0725 02/24/17 0720 Objective Remarks GENERAL: This is a well-nourished, well-developed patient, in no apparent distress. CARDIOVASCULAR: Normal rate and regular rhythm without murmurs, gallops, or rubs. RESPIRATORY: Good respiratory efforts. Breath sounds equal and clear to auscultation bilaterally. GASTROINTESTINAL: Abdomen soft, non-tender, non-distended. Normal active bowel sounds MUSCULOSKELETAL: Extremities without cyanosis, or edema. NEURO: Alert & Oriented x4 to person, place, time, situation. Can move all extremities but left lower extremity hip joint range of motion is limited due to pain and some weakness. PSYCH: Appropriate mood and affect. A/P Problem List: (1) Weakness of both lower extremities ICD Code: R29.898 Status: Acute (2) Bilateral lower extremity pain ICD Code: M79.604 Status: Acute (3) Left leg DVT ICD Code: I82.402 Status: Acute (4) Hypothyroidism ICD Code: E03.9 Status: Chronic (5) Hypertension ICD Code: I10 Status: Chronic Assessment and Plan 86-year-old female with: Lower extremity weakness and pain - Dr. Burton, neurologist following. Likely myelopathy with possible cord infarct. Possible transverse myelitis. Patient undergoing plasma exchange per neurology and hematology. EMG apparently was neg. status post LP. Improving. Continue rehabilitation efforts. DVT left lower extremity -Continue therapeutic Lovenox. - Appreciate hematology following Hypertension: -Continue metoprolol. Norvasc. Monitor closely. Hypothyroidism - on home Synthroid - TSH 0.880, T4 8.2 on 02/15/17 DVT prophylaxis -On Lovenox PT/OT following. Rehab physician also on case. Appreciate assistance Francoise Sanchez MD Feb 24, 2017 17:01
[2017-02-24] MEDS: SODIUM CHLOR 0.9% 1000 ML INJ 1,000 ML IV SCH (18:00)
[2017-02-24] MEDS: ANTICOAGULANT CITRATE DEXTROSE SOLN-A 1L OTHER SCH (18:00)
[2017-02-24] MEDS: CALCIUM GLUCONATE INJ 2 GM in SODIUM CHLORIDE 0.9% INJ 100 ML IV SCH (18:00)
[2017-02-24] MEDS: ALBUMIN HUMAN 5% 25 GM/500 ML BOTTLE IV SCH (18:00)
[2017-02-24 18:16] LABS: INTERNATIONAL NORMALIZED RATIO 1.3 RATIO; PROTHROMBIN TIME - PATIENT 14.5 SEC (9.8-11.6)
[2017-02-24 19:26] VITALS: BP 108/60; PULSE 58; RESP 58; TEMP 98.2; O2SAT 97
[2017-02-24 19:52] LABS: VDRL CSF NON-REACTIVE (())
[2017-02-25 00:41] VITALS: BP 164/72; PULSE 57; RESP 17; TEMP 96.8; O2SAT 96
[2017-02-25] MEDS: LEVOTHYROXINE SODIUM 50 MCG TAB PO SCH (05:46)
[2017-02-25] MEDS: ACETAMINOPHEN/HYDROcodone 325 MG/5 MG TAB PO PRN ×2 (05:47→22:26)
[2017-02-25 07:37] VITALS: BP 139/63; PULSE 82; RESP 17; TEMP 96.7; O2SAT 96
[2017-02-25] MEDS: SODIUM CHLORIDE 0.9% FLUSH 10 ML FLUSH IV FLUSH SCH ×2 (09:00→22:19)
[2017-02-25] MEDS: DOCUSATE SODIUM 100 MG CAP PO SCH ×2 (09:00→22:19)
--- NOTE | 2017-02-25 09:05 | HHI.PR ---
Objective Vital Signs Date Time Temp Pulse Resp B/P Pulse Ox O2 Delivery O2 Flow Rate FiO2 02/25/17 07:37 96.7 82 17 139/63 96 02/25/17 00:41 96.8 57 17 164/72 96 02/24/17 19:26 98.2 58 58 108/60 97 02/24/17 16:44 95.6 60 18 111/55 96 02/24/17 11:29 96.3 60 16 128/61 98 I/O 02/24/17 02/24/17 02/24/17 02/25/17 02/25/17 02/25/17 07:00 15:00 23:00 07:00 15:00 23:00 Intake Total 120 ml 720 ml 120 ml 120 ml Balance 120 ml 720 ml 120 ml 120 ml Intake Oral 120 ml 720 ml 120 ml 120 ml # Voids 2 0 1 # Bowel Movements 0 0 Result Diagram: 02/24/17 0725 02/24/17 0720 Objective Remarks bue nl ip 3+ r 3- left knee up 5/5 r 4/5 left quad 4+right 4- left ham 4- to 3+ bilat r ta 4+ left old foot drop 1-2 no change pin intact ble x medial r lower leg left kj 2++ r 1+ no change r bicep refles 2 no change bue 5/5 = Assessment and Plan Assessment and Plan impp emg sensory neuropathy ow essentially nl yest likley myelopathy possible cord infarct i think most likely sudden onset cta [facility] bilat le i dw rads and they felt no ca in abd or pelvis will check ct chest here nodule on right needs repeat [address] 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 should we start coumadin or other anticoag? for dvt will defer to heme and med team 02/25/17 no better plan is finish off 5 rx pex and dc to rehab i dw physiatry :? left knee brace oob ambulate dvt med heme working on blood thinners Sukhdev Burton MD Feb 25, 2017 09:05
[2017-02-25] MEDS: GABAPENTIN 300 MG CAP PO SCH ×3 (10:11→22:19)
[2017-02-25] MEDS: amLODIPine BESYLATE 5 MG TAB PO SCH (10:12)
[2017-02-25] MEDS: METOPROLOL TARTRATE 50 MG TAB PO SCH (10:12)
[2017-02-25] MEDS: PANTOPRAZOLE SOD 20 MG DELAYED RELEASE TAB PO SCH (10:12)
[2017-02-25 11:18] VITALS: BP 109/54; PULSE 60; RESP 16; TEMP 96.5; O2SAT 97
--- NOTE | 2017-02-25 12:04 | HHI.PR ---
Subjective Subjective Comments Patient awake and alert. Reports that she fell early this morning when getting up to go to bathroom with assistance. Denies any injury. Feels that legs are slightly stronger with plasma exchange. No pain complaints. Allergies: Coded Allergies: No Known Allergies (Unverified , 02/16/17) Review of Systems All other ROS: ROS reviewed as documented in chart Exam I&O / VS 02/24/17 02/24/17 02/25/17 15:00 23:00 07:00 Intake Total 720 ml 120 ml 120 ml Balance 720 ml 120 ml 120 ml Intake Oral 720 ml 120 ml 120 ml # Voids 2 0 1 # Bowel Movements 0 0 Vital Signs Date Time Temp Pulse Resp B/P Pulse Ox O2 Delivery O2 Flow Rate FiO2 02/25/17 07:37 96.7 82 17 139/63 96 02/25/17 00:41 96.8 57 17 164/72 96 02/24/17 19:26 98.2 58 58 108/60 97 02/24/17 16:44 95.6 60 18 111/55 96 General: No acute distress Skin: Other (no rash noted) Musculoskeletal: ROM (Within functional limits), Swelling (None in the lower extremities) Psychiatric: Cooperative, Appropriate mood & affect Orientation: oriented to Self, oriented to Situation Neurologic: Speech (Clear) Motor: Right Lower Extremity (Ankle DF 3+/5; PF 4/5), Left Lower Extremity ( Ankle DF 0/5; PF 2/5) Clonus: Negative Objective Micro and Labs Laboratory Tests Test 02/24/17 17:29 Prothrombin Time 14.5 Prothromb Time International 1.3 Ratio Activated Partial 57.0 Thromboplast Time Assessment and Plan Diagnosis: (1) Weakness of both lower extremities (2) Bilateral lower extremity pain Assessment 1. Progressive LE weakness. 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 Continues plasma exchange for 2 more treatments 2. Hypothyroidism 3. Hypertension 4. Osteoarthritis Plan 1. EMG nerve conduction studies completed 2. PT working of transfers and now min-mod assist and ambulating 40 feet with RW min-mod assist. Discussed with PT and will order left AFO to help progress gait. 3. OT for ADL's and now mod assist for lower extremity dressing and bathing 4. Mobilize OOB to chair daily with nursing. Continue fall precautions. 5. Receiving Lovenox for DVT prophylaxis. 6. Will need ongoing rehabilitation at discharge. Will follow in conjunction with case management regrading level of care. Will complete plasma exchange after 2 more treatments Paola Gay MD Feb 25, 2017 12:04
--- NOTE | 2017-02-25 12:52 | PD.ONC.PN ---
Subjective Subjective Remarks Afebrile overnight. Pt sitting up in chair at bedside. She is discouraged that she hasn't had more use of her legs yet since starting the plasma exchange. No obvious bleeding. Objective Data Date Time Temp Pulse Resp B/P Pulse Ox O2 Delivery O2 Flow Rate FiO2 02/25/17 07:37 96.7 82 17 139/63 96 02/25/17 00:41 96.8 57 17 164/72 96 02/24/17 19:26 98.2 58 58 108/60 97 02/24/17 16:44 95.6 60 18 111/55 96 02/25/17 02/25/17 02/25/17 07:00 15:00 23:00 Intake Total 120 ml Balance 120 ml Result Diagram: 02/24/1772402/24/17 0720 Laboratory Results Laboratory Tests Test 02/24/17 17:29 Prothrombin Time 14.5 SEC Prothromb Time International 1.3 RATIO Ratio Activated Partial 57.0 SEC Thromboplast Time Administered Medications Medications (Trade) Dose Ordered Sig/Jaron Route PRN Reason Start Time Stop Time Status Last Admin Dose Admin Sodium Chloride (NS Flush) 2 ml BID IV FLUSH 02/17/17 09:00 02/25/17 09:00 Levothyroxine Sodium (Synthroid) 50 mcg DAILY@06 PO 02/17/17 06:00 02/25/17 05:46 Losartan Potassium (Cozaar) 50 mg DAILY PO 02/17/17 09:00 Hold 02/20/17 10:14 Metoprolol Tartrate (Lopressor) 50 mg DAILY PO 02/17/17 09:00 02/25/17 10:12 Acetaminophen/ Hydrocodone Bitart ([place] 5-325 Mg) 1 tab Q6H PRN PO pain >5 02/17/17 00:45 02/25/17 05:47 Docusate Sodium (Colace) 100 mg BID PO 02/17/17 09:00 02/24/17 21:46 Magnesium Hydroxide (Milk Of Magnesia Liq) 30 ml DAILY PRN PO CONSTIPATION 02/17/17 01:45 02/20/17 10:14 Miscellaneous (Pill Splitter) 1 ea UNSCH PRN OTHER SEE LABEL COMMENTS 02/17/17 08:15 02/17/17 10:12 Pantoprazole Sodium (Protonix) 20 mg DAILY PO 02/17/17 10:00 02/25/17 10:12 Baclofen (Lioresal) 5 mg Q8HR PRN PO spasms 02/20/17 08:45 02/23/17 00:33 Amlodipine Besylate (Norvasc) 5 mg DAILY PO 02/20/17 12:00 02/25/17 10:12 Clonidine (Catapres) 0.1 mg Q6H PRN PO SBP> OR = 180, DBP> OR = 100 02/20/17 11:30 02/21/17 11:43 Albumin Human 100 gm 100 gm Q48H IV 02/20/17 18:00 02/28/17 18:01 02/22/17 17:10 Calcium Gluconate 2 gm/Sodium Chloride 120 ml @ 90 mls/hr Q48H IV 02/20/17 18:00 02/28/17 19:19 02/22/17 17:11 Sodium Chloride (NS 1000 ml Inj) 1,000 ml @ 0 mls/hr Q48H IV 02/20/17 18:00 03/01/17 23:59 02/22/17 17:11 Anticoagulant Citrate Dextose Felicia A (Acd Formula Inj) 1,000 ml Q48H OTHER 02/20/17 18:00 02/28/17 18:01 02/22/17 17:10 Heparin Sodium (Porcine) (Heparin Inj) 5,000 units UNSCH PRN IV FLUSH FLUSH AFTER USING IV ACCESS 02/20/17 18:00 02/28/17 18:01 02/24/17 12:00 Gabapentin (Neurontin) 300 mg TID@09,13,21 PO 02/23/17 09:00 02/25/17 10:11 Objective Remarks GENERAL:Pleasant elderly female, sitting up in bed in no distress. SKIN: Warm and dry. Vascath in place with mild oozing on dressing. HEAD: Normocephalic. EYES: No injection or drainage. NECK: Supple, trachea midline. CARDIOVASCULAR: Regular rate and rhythm RESPIRATORY: Breath sounds equal bilaterally. No accessory muscle use. GASTROINTESTINAL: Abdomen soft, non-tender, nondistended. EXTREMITIES: No cyanosis. No edema. NEUROLOGICAL: Awake and alert, normal speech. moving extremities. Assessment/Plan Problem List: (1) Weakness of both lower extremities Status: Acute Plan: Transverse myelitis. 02/25: Fibrinogen ordered today. Mild oozing on Vascath dressing noted. Await Fibrinogen results today; may transfuse cryo if low. 02/24: PEX #3 today. Pt doing well feels stronger, leg moving better, temporally related to starting pheresis. Assessment 86 y/o female with LE weakness, L>R - diff dx transverse myelitis. Plan 1. Awaiting fibrinogen, coag studies ordered today. 2. Mild oozing to Vascath dressing; will stop the Lovenox for now. 3. May need cryoprecipitate later today depending on fibrinogen level. 4. Supportive care. Attending Statement The exam, history, and the medical decision-making described in the above note were completed with the assistance of the mid-level provider. I reviewed and agree with the findings presented. I attest that I had a [id number] encounter with the patient on the same day, and personally performed and documented my assessment and findings in the medical record. Pt seen and examined. Noted fall last night, bruise/hematoma L foot, swelling of dorsum of foot. In am reported oozing at vascath site, Lovenox was held. Continue to monitor for bleeding. Ice prn to L foot. Ann Luke Feb 25, 2017 12:52 Melina Mir MD Feb 25, 2017 20:12
--- NOTE | 2017-02-25 14:18 | HHI.PR ---
Subjective Remarks Patient reports no changes today in her strength or left upper thigh pain. She is sitting up in the chair. Otherwise no new complaints. Objective Vitals Vital Signs Date Time Temp Pulse Resp B/P Pulse Ox O2 Delivery O2 Flow Rate FiO2 02/25/17 11:18 96.5 60 16 109/54 97 02/25/17 07:37 96.7 82 17 139/63 96 02/25/17 00:41 96.8 57 17 164/72 96 02/24/17 19:26 98.2 58 58 108/60 97 02/24/17 16:44 95.6 60 18 111/55 96 I/O 02/24/17 02/24/17 02/24/17 02/25/17 02/25/17 02/25/17 07:00 15:00 23:00 07:00 15:00 23:00 Intake Total 120 ml 720 ml 120 ml 120 ml Balance 120 ml 720 ml 120 ml 120 ml Intake Oral 120 ml 720 ml 120 ml 120 ml # Voids 2 0 1 # Bowel Movements 0 0 Result Diagram: 02/24/17 0725 02/24/17 0720 Objective Remarks GENERAL: This is a well-nourished, well-developed patient, in no apparent distress. CARDIOVASCULAR: Normal rate and regular rhythm without murmurs, gallops, or rubs. RESPIRATORY: Good respiratory efforts. Breath sounds equal and clear to auscultation bilaterally. GASTROINTESTINAL: Abdomen soft, non-tender, non-distended. Normal active bowel sounds MUSCULOSKELETAL: Extremities without cyanosis, or edema. NEURO: Alert & Oriented x4 to person, place, time, situation. Can move all extremities but left lower extremity hip joint range of motion is limited due to pain and some weakness. PSYCH: Appropriate mood and affect. A/P Problem List: (1) Weakness of both lower extremities ICD Code: R29.898 Status: Acute (2) Bilateral lower extremity pain ICD Code: M79.604 Status: Acute (3) Left leg DVT ICD Code: I82.402 Status: Acute (4) Hypothyroidism ICD Code: E03.9 Status: Chronic (5) Hypertension ICD Code: I10 Status: Chronic Assessment and Plan 86-year-old female with: Lower extremity weakness and pain - Dr. Burton, neurologist following. Likely myelopathy with possible cord infarct. Possible transverse myelitis. Patient undergoing plasma exchange per neurology and hematology. EMG apparently was neg. status post LP. Improving. Continue rehabilitation efforts. -Plan is to finish 5 treatment of plasmapheresis and discharge to rehab. DVT left lower extremity -Continue therapeutic Lovenox. - Appreciate hematology following Hypertension: -Continue metoprolol. Norvasc. Monitor closely. Hypothyroidism - on home Synthroid - TSH 0.880, T4 8.2 on 02/15/17 DVT prophylaxis -On Lovenox PT/OT following. Rehab physician also on case. Appreciate assistance Francoise Sanchez MD Feb 25, 2017 14:18
[2017-02-25 16:00] VITALS: BP 126/65; PULSE 64; RESP 16; TEMP 97.9; O2SAT 100
[2017-02-25 18:37] LABS: APTT (PATIENT) 27.2 SEC (24.3-30.1); PROTHROMBIN TIME - PATIENT 10.7 SEC (9.8-11.6)
[2017-02-25 19:45] VITALS: BP 117/58; PULSE 73; RESP 18; TEMP 97.8; O2SAT 98
--- NOTE | 2017-02-25 20:16 | RADRPT ---
EXAM DATE/TIME: 02/25/2017 19:59 [facility] COMPARISON: No previous studies available for comparison. INDICATIONS : Left foot pain after fall. MEDICAL HISTORY : None. SURGICAL HISTORY : None. ENCOUNTER: Initial ACUITY: 2 days PAIN SCORE: 10/10 LOCATION: Left lateral foot. FINDINGS: No fracture or subluxation demonstrated of the left foot. There is soft tissue swelling, especially t he forefoot. Mild hallux valgus with moderate degenerative changes of the first metatarsophalangeal joint and sesa moids noted. CONCLUSION: Soft tissue swelling without perceptible fracture. Hallux valgus with associated degenerative changes . Chad Myrick MD on February 25, 2017 at 20:14 Board Certified Radiologist. This report was verified electronically.
[2017-02-25] MEDS ORDERED: ENOXAPARIN SODIUM 60 MG/0.6 ML SYRINGE SQ SCH (21:00)
[2017-02-26 00:52] VITALS: BP 121/68; PULSE 74; RESP 19; TEMP 97.8; O2SAT 97
[2017-02-26] MEDS: LEVOTHYROXINE SODIUM 50 MCG TAB PO SCH (06:02)
[2017-02-26 07:58] VITALS: BP 158/70; PULSE 66; RESP 18; TEMP 98.2; O2SAT 97
[2017-02-26] MEDS: SODIUM CHLORIDE 0.9% FLUSH 10 ML FLUSH IV FLUSH SCH ×2 (09:00→19:34)
[2017-02-26] MEDS: DOCUSATE SODIUM 100 MG CAP PO SCH ×2 (09:00→21:07)
[2017-02-26] MEDS: BACLOFEN 10 MG TAB PO PRN (09:04)
[2017-02-26] MEDS: amLODIPine BESYLATE 5 MG TAB PO SCH (09:04)
[2017-02-26] MEDS: GABAPENTIN 300 MG CAP PO SCH ×3 (09:04→21:07)
[2017-02-26] MEDS: METOPROLOL TARTRATE 50 MG TAB PO SCH (09:04)
[2017-02-26] MEDS: PANTOPRAZOLE SOD 20 MG DELAYED RELEASE TAB PO SCH (09:04)
--- NOTE | 2017-02-26 11:02 | HHI.PR ---
Subjective Remarks Patient reports feeling okay today. She is about to have plasmapheresis treatment. She denies chest pain or shortness of breath. Pain in the leg has improved. Objective Vitals Vital Signs Date Time Temp Pulse Resp B/P Pulse Ox O2 Delivery O2 Flow Rate FiO2 02/26/17 07:58 98.2 66 18 158/70 97 02/26/17 00:52 97.8 74 19 121/68 97 02/25/17 19:45 97.8 73 18 117/58 98 02/25/17 16:00 97.9 64 16 126/65 100 02/25/17 11:18 96.5 60 16 109/54 97 I/O 02/25/17 02/25/17 02/25/17 02/26/17 02/26/17 02/26/17 07:00 15:00 23:00 07:00 15:00 23:00 Intake Total 120 ml 720 ml 360 ml 400 ml Balance 120 ml 720 ml 360 ml 400 ml Intake Oral 120 ml 720 ml 360 ml 400 ml # Voids 1 2 1 1 # Bowel Movements 0 0 0 Result Diagram: 02/24/17 0725 02/24/17 0720 Objective Remarks GENERAL: This is a well-nourished, well-developed patient, in no apparent distress. CARDIOVASCULAR: Normal rate and regular rhythm without murmurs, gallops, or rubs. RESPIRATORY: Good respiratory efforts. Breath sounds equal and clear to auscultation bilaterally. GASTROINTESTINAL: Abdomen soft, non-tender, non-distended. Normal active bowel sounds MUSCULOSKELETAL: Extremities without cyanosis, or edema. NEURO: Alert & Oriented x4 to person, place, time, situation. Can move all extremities but left lower extremity hip joint range of motion is limited due to pain and some weakness. PSYCH: Appropriate mood and affect. A/P Problem List: (1) Weakness of both lower extremities ICD Code: R29.898 Status: Acute (2) Bilateral lower extremity pain ICD Code: M79.604 Status: Acute (3) Left leg DVT ICD Code: I82.402 Status: Acute (4) Hypothyroidism ICD Code: E03.9 Status: Chronic (5) Hypertension ICD Code: I10 Status: Chronic Assessment and Plan 86-year-old female with: Lower extremity weakness and pain - Dr. Burton, neurologist following. Likely myelopathy with possible cord infarct. Possible transverse myelitis. Patient undergoing plasma exchange per neurology and hematology. EMG apparently was neg. status post LP. Improving. Continue rehabilitation efforts. -Plan is to finish 5 treatment of plasmapheresis and discharge to rehab. DVT left lower extremity -Continue therapeutic Lovenox. - Appreciate hematology following Hypertension: -Continue metoprolol. Norvasc. Monitor closely. Hypothyroidism - on home Synthroid - TSH 0.880, T4 8.2 on 02/15/17 DVT prophylaxis -On Lovenox PT/OT following. Rehab physician also on case. Appreciate assistance Francoise Sanchez MD Feb 26, 2017 11:02
[2017-02-26 11:32] LABS: AUTOMATED NEUTROPHIL # 10.2 TH/MM3 (1.8-7.7); BASOPHIL # 0.1 TH/MM3 (0-0.2); BASOPHIL % 0.4 % (0.0-2.0); EOSINOPHIL # 0.4 TH/MM3 (0-0.4); EOSINOPHIL % 3.2 % (0.0-4.0); HEMATOCRIT 35.7 % (35.0-46.0); LYMPH % 9.8 % (9.0-44.0); LYMPHOCYTE # 1.2 TH/MM3 (1.0-4.8); MEAN CELL VOLUME 92.1 FL (80.0-100.0); MEAN CORPUSCULAR HEMOGLOBIN 31.2 PG (27.0-34.0); MEAN CORPUSCULAR HGB CONC 33.9 % (32.0-36.0); MONO % 6.4 % (0.0-8.0); NEUT % 80.2 % (16.0-70.0); PLATELET COUNT 187 TH/MM3 (150-450); RED BLOOD COUNT 3.88 MIL/MM3 (4.00-5.30); RED CELL DISTRIBUTION WIDTH 14.3 % (11.6-17.2); WHITE BLOOD COUNT 12.7 TH/MM3 (4.0-11.0)
[2017-02-26 11:36] LABS: HEMO FLAGS AUTO DIFF
[2017-02-26] MEDS: HEPARIN SODIUM - 10,000 UNITS/ML 1ML VIAL IV FLUSH PRN (11:39)
[2017-02-26] MEDS: CALCIUM GLUCONATE INJ 2 GM in SODIUM CHLORIDE 0.9% INJ 100 ML IV SCH (11:40)
[2017-02-26] MEDS: SODIUM CHLOR 0.9% 1000 ML INJ 1,000 ML IV SCH (11:40)
[2017-02-26] MEDS: ALBUMIN HUMAN 5% 25 GM/500 ML BOTTLE IV SCH (11:40)
[2017-02-26] MEDS: ANTICOAGULANT CITRATE DEXTROSE SOLN-A 1L OTHER SCH (11:41)
[2017-02-26 12:18] LABS: PLATELET ESTIMATE SMEAR NORMAL (NORMAL); PLATELET MORPHOLOGY NORMAL (NORMAL); SCAN/DIFF AUTO DIFF CONFIRMED
[2017-02-26 12:25] VITALS: BP 140/76; PULSE 69; RESP 16; TEMP 97.9; O2SAT 98
[2017-02-26 13:54] LABS: HEPARIN Xa LMWH 1.11 IU/mL (())
[2017-02-26 15:30] VITALS: BP 99/49; PULSE 71; RESP 22; TEMP 98.8; O2SAT 96
[2017-02-26 15:53] LABS: HEPARIN Xa LMWH <0.20 IU/mL (())
--- NOTE | 2017-02-26 17:25 | EKG ---
Date Performed: 02/26/2017 Time Performed: 15:55:06 PTAGE: 86 years EKG: SINUS BRADYCARDIA BORDERLINE LEFT AXIS DEVIATION VOLTAGE CRITERIA FOR LVH NONSPECIFIC T-WAV E ABNORMALITY ABNORMAL ECG NO PREVIOUS TRACING DOCTOR: Rasheed Myles Interpretating Date/Time 02/26/2017 17:23:14
--- NOTE | 2017-02-26 17:37 | PD.ONC.PN ---
Subjective Subjective Remarks L foot feeling better. Eager to finish with pheresis. Objective Data Date Time Temp Pulse Resp B/P Pulse Ox O2 Delivery O2 Flow Rate FiO2 02/26/17 15:30 98.8 71 22 99/49 96 02/26/17 12:25 97.9 69 16 140/76 98 02/26/17 09:00 Room Air 02/26/17 07:58 98.2 66 18 158/70 97 02/26/17 00:52 97.8 74 19 121/68 97 02/25/17 19:45 97.8 73 18 117/58 98 02/26/17 02/26/17 02/26/17 07:00 15:00 23:00 Intake Total 400 ml 860 ml Balance 400 ml 860 ml Result Diagram: 02/26/17 1113 02/24/17 0720 Laboratory Results Laboratory Tests Test 02/25/17 02/26/17 17:37 11:13 Prothrombin Time 10.7 SEC Prothromb Time International 1.0 RATIO Ratio Activated Partial 27.2 SEC Thromboplast Time Fibrinogen 196 mg/dL White Blood Count 12.7 TH/MM3 Red Blood Count 3.88 MIL/MM3 Hemoglobin 12.1 GM/DL Hematocrit 35.7 % Mean Corpuscular Volume 92.1 FL Mean Corpuscular Hemoglobin 31.2 PG Mean Corpuscular Hemoglobin 33.9 % Concent Red Cell Distribution Width 14.3 % Platelet Count 187 TH/MM3 Mean Platelet Volume 8.4 FL Neutrophils (%) (Auto) 80.2 % Lymphocytes (%) (Auto) 9.8 % Monocytes (%) (Auto) 6.4 % Eosinophils (%) (Auto) 3.2 % Basophils (%) (Auto) 0.4 % Neutrophils # (Auto) 10.2 TH/MM3 Lymphocytes # (Auto) 1.2 TH/MM3 Monocytes # (Auto) 0.8 TH/MM3 Eosinophils # (Auto) 0.4 TH/MM3 Basophils # (Auto) 0.1 TH/MM3 CBC Comment AUTO DIFF Differential Comment AUTO DIFF CONFIRMED Platelet Estimate NORMAL Platelet Morphology Comment NORMAL Red Cell Morphology Comment NORMAL Administered Medications Medications (Trade) Dose Ordered Sig/Jaron Route PRN Reason Start Time Stop Time Status Last Admin Dose Admin Sodium Chloride (NS Flush) 2 ml BID IV FLUSH 02/17/17 09:00 02/26/17 09:00 Levothyroxine Sodium (Synthroid) 50 mcg DAILY@06 PO 02/17/17 06:00 02/26/17 06:02 Losartan Potassium (Cozaar) 50 mg DAILY PO 02/17/17 09:00 Hold 02/20/17 10:14 Metoprolol Tartrate (Lopressor) 50 mg DAILY PO 02/17/17 09:00 02/26/17 09:04 Acetaminophen/ Hydrocodone Bitart ([place] 5-325 Mg) 1 tab Q6H PRN PO pain >5 02/17/17 00:45 02/25/17 22:26 Docusate Sodium (Colace) 100 mg BID PO 02/17/17 09:00 02/24/17 21:46 Magnesium Hydroxide (Milk Of Magnfelecia Liq) 30 ml DAILY PRN PO CONSTIPATION 02/17/17 01:45 02/20/17 10:14 Miscellaneous (Pill Splitter) 1 ea UNSCH PRN OTHER SEE LABEL COMMENTS 02/17/17 08:15 02/17/17 10:12 Pantoprazole Sodium (Protonix) 20 mg DAILY PO 02/17/17 10:00 02/26/17 09:04 Baclofen (Lioresal) 5 mg Q8HR PRN PO spasms 02/20/17 08:45 02/26/17 09:04 Amlodipine Besylate (Norvasc) 5 mg DAILY PO 02/20/17 12:00 02/26/17 09:04 Clonidine (Catapres) 0.1 mg Q6H PRN PO SBP> OR = 180, DBP> OR = 100 02/20/17 11:30 02/21/17 11:43 Albumin Human 100 gm 100 gm Q48H IV 02/20/17 18:00 02/28/17 18:01 02/26/17 11:40 Calcium Gluconate 2 gm/Sodium Chloride 120 ml @ 90 mls/hr Q48H IV 02/20/17 18:00 02/28/17 19:19 02/26/17 11:40 Sodium Chloride (NS 1000 ml Inj) 1,000 ml @ 0 mls/hr Q48H IV 02/20/17 18:00 03/01/17 23:59 02/26/17 11:40 Anticoagulant Citrate Dextose Felicia A (Acd Formula Inj) 1,000 ml Q48H OTHER 02/20/17 18:00 02/28/17 18:01 02/26/17 11:41 Heparin Sodium (Porcine) (Heparin Inj) 5,000 units UNSCH PRN IV FLUSH FLUSH AFTER USING IV ACCESS 02/20/17 18:00 02/28/17 18:01 02/26/17 11:39 Gabapentin (Neurontin) 300 mg TID@09,13,21 PO 02/23/17 09:00 02/26/17 13:08 Objective Remarks GENERAL: Well-nourished, well-developed patient. SKIN: Warm and dry. HEAD: Normocephalic. EYES: No scleral icterus. No injection or drainage. NECK: Supple, trachea midline. No JVD or lymphadenopathy. LYMPHATIC: No adenopathy. R neck vascath, no bleeding. CARDIOVASCULAR: Regular rate and rhythm without murmurs. RESPIRATORY: Breath sounds equal bilaterally. No accessory muscle use. GASTROINTESTINAL: Abdomen soft, non-tender, nondistended. EXTREMITIES: Ecchymosis dorsum L foot. MUSCULOSKELETAL: Adequate muscle tone. NEUROLOGICAL: L foot drop persist. PSYCHIATRIC: Appropriate mood and affect; insight and judgment normal. Assessment/Plan Problem List: (1) Weakness of both lower extremities Status: Acute Plan: 02/26/17. s/p PEX #4, tolerated treatment, no bleeding. Transverse myelitis. 02/25: Fibrinogen ordered today. Mild oozing on Vascath dressing noted. Await Fibrinogen results today; may transfuse cryo if low. 02/24: PEX #3 today. Pt doing well feels stronger, leg moving better, temporally related to starting pheresis. (2) Traumatic hematoma of left foot Status: Acute Plan: s/p fall, ice over night brought swelling down. No additional injury. Assessment 86 y/o female with LE weakness, L>R - diff dx transverse myelitis. Plan 1. Continue pheresis as ordered 2. Oozing from Vascath resolved. 3. Anticipate resume Lovenox tomorrow. 4. Cont ice prn Melina Mir MD Feb 26, 2017 17:37
[2017-02-26] MEDS: ACETAMINOPHEN/HYDROcodone 325 MG/5 MG TAB PO PRN (19:33)
[2017-02-26 20:00] VITALS: BP 130/59; PULSE 73; RESP 18; TEMP 98.4; O2SAT 95
[2017-02-26 23:55] VITALS: BP 118/59; PULSE 67; RESP 17; TEMP 97.3; O2SAT 93
[2017-02-27] MEDS: BACLOFEN 10 MG TAB PO PRN (03:28)
[2017-02-27] MEDS: LEVOTHYROXINE SODIUM 50 MCG TAB PO SCH (06:04)
--- NOTE | 2017-02-27 07:32 | HHI.PR ---
Objective Vital Signs Date Time Temp Pulse Resp B/P Pulse Ox O2 Delivery O2 Flow Rate FiO2 02/26/17 23:55 97.3 67 17 118/59 93 02/26/17 20:00 98.4 73 18 130/59 95 02/26/17 15:30 98.8 71 22 99/49 96 02/26/17 12:25 97.9 69 16 140/76 98 02/26/17 09:00 Room Air 02/26/17 07:58 98.2 66 18 158/70 97 I/O 02/26/17 02/26/17 02/26/17 02/27/17 02/27/17 02/27/17 07:00 15:00 23:00 07:00 15:00 23:00 Intake Total 400 ml 860 ml 240 ml 120 ml Balance 400 ml 860 ml 240 ml 120 ml Intake Oral 400 ml 860 ml 240 ml 120 ml # Voids 1 4 1 1 # Bowel Movements 0 1 1 0 Result Diagram: 02/26/17 1113 02/24/17 0720 Objective Remarks bue nl ip 3+ r 3- left knee up 5/5 r 4/5 left quad 4+right 4- left ham 4- to 3+ bilat r ta 4+ left old foot drop 1-2 no change pin intact ble x medial r lower leg left kj 2++ r 1+ no change r bicep refles 2 no change bue 5/5 NO change still Assessment and Plan Assessment and Plan impp emg sensory neuropathy ow essentially nl yest likley myelopathy possible cord infarct i think most likely sudden onset cta ramona bilat le i dw rads and they felt no ca in abd or pelvis will check ct chest here nodule on right needs repeat [address] 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 should we start coumadin or other anticoag? for dvt will defer to heme and med team 02/25/17 no better plan is finish off 5 rx pex and dc to rehab i cesia physiatry :? left knee brace oob ambulate dvt med heme working on blood thinners 02/27/17 no change to rehab after pex in am ok by me dvt heme on case rehab on case afo provided left has been walking w Sukhdev Rae MD Feb 27, 2017 07:32
[2017-02-27 07:50] VITALS: BP 147/61; PULSE 76; RESP 18; TEMP 98.5; O2SAT 95
[2017-02-27] MEDS: DOCUSATE SODIUM 100 MG CAP PO SCH ×2 (08:26→19:29)
[2017-02-27] MEDS: GABAPENTIN 300 MG CAP PO SCH ×3 (08:26→19:28)
[2017-02-27] MEDS: PANTOPRAZOLE SOD 20 MG DELAYED RELEASE TAB PO SCH (08:26)
[2017-02-27] MEDS: SODIUM CHLORIDE 0.9% FLUSH 10 ML FLUSH IV FLUSH SCH ×2 (08:26→19:29)
[2017-02-27] MEDS: METOPROLOL TARTRATE 50 MG TAB PO SCH (08:26)
[2017-02-27] MEDS: amLODIPine BESYLATE 5 MG TAB PO SCH (08:26)
--- NOTE | 2017-02-27 10:56 | PD.ONC.PN ---
Subjective Subjective Remarks Afebrile overnight. Patient denies bleeding or pain. No dyspnea. she reports marginal improvement in strength since beginning the plasma exchange. Objective Data Date Time Temp Pulse Resp B/P Pulse Ox O2 Delivery O2 Flow Rate FiO2 02/27/17 07:50 98.5 76 18 147/61 95 02/26/17 23:55 97.3 67 17 118/59 93 02/26/17 20:00 98.4 73 18 130/59 95 02/26/17 15:30 98.8 71 22 99/49 96 02/26/17 12:25 97.9 69 16 140/76 98 02/27/17 02/27/17 02/27/17 07:00 15:00 23:00 Intake Total 120 ml Balance 120 ml Result Diagram: 02/26/17 1113 02/24/17 0720 Laboratory Results Laboratory Tests Test 02/26/17 11:13 White Blood Count 12.7 TH/MM3 Red Blood Count 3.88 MIL/MM3 Hemoglobin 12.1 GM/DL Hematocrit 35.7 % Mean Corpuscular Volume 92.1 FL Mean Corpuscular Hemoglobin 31.2 PG Mean Corpuscular Hemoglobin 33.9 % Concent Red Cell Distribution Width 14.3 % Platelet Count 187 TH/MM3 Mean Platelet Volume 8.4 FL Neutrophils (%) (Auto) 80.2 % Lymphocytes (%) (Auto) 9.8 % Monocytes (%) (Auto) 6.4 % Eosinophils (%) (Auto) 3.2 % Basophils (%) (Auto) 0.4 % Neutrophils # (Auto) 10.2 TH/MM3 Lymphocytes # (Auto) 1.2 TH/MM3 Monocytes # (Auto) 0.8 TH/MM3 Eosinophils # (Auto) 0.4 TH/MM3 Basophils # (Auto) 0.1 TH/MM3 CBC Comment AUTO DIFF Differential Comment AUTO DIFF CONFIRMED Platelet Estimate NORMAL Platelet Morphology Comment NORMAL Red Cell Morphology Comment NORMAL Administered Medications Medications (Trade) Dose Ordered Sig/Jaron Route PRN Reason Start Time Stop Time Status Last Admin Dose Admin Sodium Chloride (NS Flush) 2 ml BID IV FLUSH 02/17/17 09:00 02/27/17 08:26 Levothyroxine Sodium (Synthroid) 50 mcg DAILY@06 PO 02/17/17 06:00 02/27/17 06:04 Losartan Potassium (Cozaar) 50 mg DAILY PO 02/17/17 09:00 Hold 02/20/17 10:14 Metoprolol Tartrate (Lopressor) 50 mg DAILY PO 02/17/17 09:00 02/27/17 08:26 Acetaminophen/ Hydrocodone Bitart ([place] 5-325 Mg) 1 tab Q6H PRN PO pain >5 02/17/17 00:45 02/26/17 19:33 Docusate Sodium (Colace) 100 mg BID PO 02/17/17 09:00 02/26/17 21:07 Magnesium Hydroxide (Milk Of Magnesia Liq) 30 ml DAILY PRN PO CONSTIPATION 02/17/17 01:45 02/20/17 10:14 Miscellaneous (Pill Splitter) 1 ea UNSCH PRN OTHER SEE LABEL COMMENTS 02/17/17 08:15 02/17/17 10:12 Pantoprazole Sodium (Protonix) 20 mg DAILY PO 02/17/17 10:00 02/27/17 08:26 Baclofen (Lioresal) 5 mg Q8HR PRN PO spasms 02/20/17 08:45 02/27/17 03:28 Amlodipine Besylate (Norvasc) 5 mg DAILY PO 02/20/17 12:00 02/27/17 08:26 Clonidine (Catapres) 0.1 mg Q6H PRN PO SBP> OR = 180, DBP> OR = 100 02/20/17 11:30 02/21/17 11:43 Albumin Human 100 gm 100 gm Q48H IV 02/20/17 18:00 02/28/17 18:01 02/26/17 11:40 Calcium Gluconate 2 gm/Sodium Chloride 120 ml @ 90 mls/hr Q48H IV 02/20/17 18:00 02/28/17 19:19 02/26/17 11:40 Sodium Chloride (NS 1000 ml Inj) 1,000 ml @ 0 mls/hr Q48H IV 02/20/17 18:00 03/01/17 23:59 02/26/17 11:40 Anticoagulant Citrate Dextose Felicia A (Acd Formula Inj) 1,000 ml Q48H OTHER 02/20/17 18:00 02/28/17 18:01 02/26/17 11:41 Heparin Sodium (Porcine) (Heparin Inj) 5,000 units UNSCH PRN IV FLUSH FLUSH AFTER USING IV ACCESS 02/20/17 18:00 02/28/17 18:01 02/26/17 11:39 Gabapentin (Neurontin) 300 mg TID@,, PO 02/23/17 09:00 02/27/17 08:26 Objective Remarks GENERAL: Elderly female, sitting up in chair next to bed in nad SKIN: Warm and dry. vascath site clean without bleeding. HEAD: Normocephalic. EYES: No injection or drainage. NECK: Supple, trachea midline. CARDIOVASCULAR: Regular rate and rhythm RESPIRATORY: Breath sounds equal bilaterally. No accessory muscle use. GASTROINTESTINAL: Abdomen soft, non-tender, nondistended. EXTREMITIES: No cyanosis NEUROLOGICAL: No obvious focal deficit. Awake, alert, and oriented x3. Assessment/Plan Problem List: (1) Weakness of both lower extremities Status: Acute Plan: 02/27: off day 02/26/17. s/p PEX #4, tolerated treatment, no bleeding. Transverse myelitis. 02/25: Fibrinogen ordered today. Mild oozing on Vascath dressing noted. Await Fibrinogen results today; may transfuse cryo if low. 02/24: PEX #3 today. Pt doing well feels stronger, leg moving better, temporally related to starting pheresis. (2) Traumatic hematoma of left foot Status: Acute Plan: s/p fall, ice over night brought swelling down. No additional injury. Assessment 86 y/o female with LE weakness, L>R - diff dx transverse myelitis. Plan 1. last day of plasma exchange tomorrow. 2. will resume Lovenox after plasma exchange 3. Remove vascath prior to resumption of Lovenox Attending Statement The exam, history, and the medical decision-making described in the above note were completed with the assistance of the mid-level provider. I reviewed and agree with the findings presented. I attest that I had a [id number] encounter with the patient on the same day, and personally performed and documented my assessment and findings in the medical record. Pt seen and examined. Working with PT to fit appropriate shoes and ankle support. L foot hematoma improve. L foot drop persist. Discussed plans to perform last pheresis for presumed transverse myelitis. Coordinate removal of vascath while off Lovenox. After wards, we can resume anticoagulant therapy Lovenox bridge to therapeutic INR after catheter removal. Rossana Perry Feb 27, 2017 10:56 Melina Mir MD Feb 27, 2017 23:46
[2017-02-27 12:00] VITALS: BP 130/76; PULSE 72; RESP 16; TEMP 97.4; O2SAT 94
[2017-02-27] MEDS ORDERED: BACLOFEN 10 MG TAB PO PRN (12:07)
--- NOTE | 2017-02-27 14:37 | HHI.PR ---
Subjective Remarks Patient seen in follow-up for lower extremity weakness undergoing treatment for transverse myelitis with plasma exchange per neurology and hematology. Patient reports she is feeling better overall. She ambulated today. Pain is better controlled. Objective Vitals Vital Signs Date Time Temp Pulse Resp B/P Pulse Ox O2 Delivery O2 Flow Rate FiO2 02/27/17 12:00 97.4 72 16 130/76 94 02/27/17 08:20 Room Air 02/27/17 07:50 98.5 76 18 147/61 95 02/26/17 23:55 97.3 67 17 118/59 93 02/26/17 20:00 98.4 73 18 130/59 95 02/26/17 15:30 98.8 71 22 99/49 96 I/O 02/26/17 02/26/17 02/26/17 02/27/17 02/27/17 02/27/17 07:00 15:00 23:00 07:00 15:00 23:00 Intake Total 400 ml 860 ml 240 ml 120 ml Balance 400 ml 860 ml 240 ml 120 ml Intake Oral 400 ml 860 ml 240 ml 120 ml # Voids 1 4 1 1 # Bowel Movements 0 1 1 0 Result Diagram: 02/26/17 1113 02/24/17 0720 Objective Remarks GENERAL: This is a well-nourished, well-developed patient, in no apparent distress. CARDIOVASCULAR: Normal rate and regular rhythm without murmurs, gallops, or rubs. RESPIRATORY: Good respiratory efforts. Breath sounds equal and clear to auscultation bilaterally. GASTROINTESTINAL: Abdomen soft, non-tender, non-distended. Normal active bowel sounds MUSCULOSKELETAL: Extremities without cyanosis, or edema. NEURO: Alert & Oriented x4 to person, place, time, situation. Can move all extremities. Left lower extremity strength is about 4/5. Right stronger. PSYCH: Appropriate mood and affect. A/P Problem List: (1) Weakness of both lower extremities ICD Code: R29.898 Status: Acute (2) Bilateral lower extremity pain ICD Code: M79.604 Status: Acute (3) Left leg DVT ICD Code: I82.402 Status: Acute (4) Hypothyroidism ICD Code: E03.9 Status: Chronic (5) Hypertension ICD Code: I10 Status: Chronic Assessment and Plan 86-year-old female with lower extremity weakness and pain. Patient also has a DVT of the left lower extremity. She is undergoing treatment for transverse myelitis per neurology and hematology. She has had 4 out of 5 plasmapheresis treatments. The last dose is scheduled for tomorrow. She can be discharged to [place] after the last dose. Vas-Cath need to be removed and Lovenox restarted after removal of the Vas-Cath. Lower extremity weakness and pain - Dr. Burton, neurologist following. Likely myelopathy with possible cord infarct. Possible transverse myelitis. Patient undergoing plasma exchange per neurology and hematology. EMG apparently was neg. status post LP. Improving. Continue rehabilitation efforts. -Last plasmapheresis treatment scheduled for tomorrow. Patient can be discharged to [place] to continue rehabilitation afterwards as noted above. DVT left lower extremity - Appreciate hematology following - Lovenox to restarted after removal of Vascath tomorrow. Hypertension: -Continue metoprolol. Resume losartan on discharge. Monitor closely. Hypothyroidism - on home Synthroid - TSH 0.880, T4 8.2 on 02/15/17 DVT prophylaxis -On Lovenox PT/OT following. Rehab physician also on case. Appreciate assistance Discharge Planning Plan to discharge to [place] tomorrow as noted above. Francoise Sanchez MD Feb 27, 2017 14:37
[2017-02-27 16:10] VITALS: BP 158/70; PULSE 84; RESP 18; TEMP 100.1; O2SAT 97
[2017-02-27 20:00] VITALS: BP 133/64; PULSE 77; RESP 18; TEMP 99.3; O2SAT 95
[2017-02-28] VITALS: BP 135/66; PULSE 76; RESP 20; TEMP 96.7; O2SAT 95
[2017-02-28] MEDS: LEVOTHYROXINE SODIUM 50 MCG TAB PO SCH (05:00)
[2017-02-28 07:16] VITALS: BP 127/64; PULSE 65; RESP 16; TEMP 98.3; O2SAT 95
[2017-02-28] MEDS: GABAPENTIN 300 MG CAP PO SCH ×2 (10:45→16:04)
[2017-02-28] MEDS: PANTOPRAZOLE SOD 20 MG DELAYED RELEASE TAB PO SCH (10:45)
[2017-02-28] MEDS: amLODIPine BESYLATE 5 MG TAB PO SCH (10:45)
[2017-02-28] MEDS: DOCUSATE SODIUM 100 MG CAP PO SCH (10:45)
[2017-02-28] MEDS: METOPROLOL TARTRATE 50 MG TAB PO SCH (10:45)
[2017-02-28] MEDS: SODIUM CHLORIDE 0.9% FLUSH 10 ML FLUSH IV FLUSH SCH (10:46)
[2017-02-28 10:59] LABS: AUTOMATED NEUTROPHIL # 10.9 TH/MM3 (1.8-7.7); BASOPHIL % 0.2 % (0.0-2.0); EOSINOPHIL # 0.2 TH/MM3 (0-0.4); EOSINOPHIL % 1.5 % (0.0-4.0); HEMATOCRIT 34.8 % (35.0-46.0); HEMO FLAGS DIFF FINAL; LYMPH % 9.7 % (9.0-44.0); LYMPHOCYTE # 1.3 TH/MM3 (1.0-4.8); MEAN CELL VOLUME 94.1 FL (80.0-100.0); MEAN CORPUSCULAR HEMOGLOBIN 30.9 PG (27.0-34.0); MEAN CORPUSCULAR HGB CONC 32.8 % (32.0-36.0); MONO % 6.6 % (0.0-8.0); PLATELET COUNT 159 TH/MM3 (150-450); RED CELL DISTRIBUTION WIDTH 14.3 % (11.6-17.2); WHITE BLOOD COUNT 13.3 TH/MM3 (4.0-11.0)
--- NOTE | 2017-02-28 12:28 | HHI.PR ---
Subjective Remarks Follow-up transverse myelitis 02/28/17-patient seen and examined, she is about to receive plasma exchange, stable and no acute event overnight Objective Vitals Vital Signs Date Time Temp Pulse Resp B/P Pulse Ox O2 Delivery O2 Flow Rate FiO2 02/28/17 07:16 98.3 65 16 127/64 95 02/28/17 00:00 96.7 76 20 135/66 95 02/27/17 20:00 99.3 77 18 133/64 95 02/27/17 16:10 100.1 84 18 158/70 97 I/O 02/27/17 02/27/17 02/27/17 02/28/17 02/28/17 02/28/17 07:00 15:00 23:00 07:00 15:00 23:00 Intake Total 120 ml 860 ml 480 ml 240 ml Balance 120 ml 860 ml 480 ml 240 ml Intake Oral 120 ml 860 ml 480 ml 240 ml # Voids 1 6 1 1 # Bowel Movements 0 2 1 0 Result Diagram: 02/28/17 1028 02/24/17 0720 Imaging Last Impressions Foot X-Ray 02/25/17 0000 Signed Impressions: Service Date/Time: Saturday, February 25, 2017 19:59 - CONCLUSION: Soft tissue swelling without perceptible fracture. Hallux valgus with associated degenerative changes. Chad Myrick MD Catheter Placement X-Ray 02/20/17 0000 Signed Impressions: Service Date/Time: Monday, February 20, 2017 14:59 - CONCLUSION: Uncomplicated line placement as above. Avelino Ng MD Lumbar Puncture Fluoroscopy 02/19/17 0000 Signed Impressions: Service Date/Time: February 10:13 - CONCLUSION: Uncomplicated fluoroscopically guided lumbar puncture. Avelino Ng MD Chest CT 02/19/17 0000 Signed Impressions: Service Date/Time: February 09:22 - CONCLUSION: 1. COPD changes. 2. 0.8 x 1.2 cm pleural-based nodule posteriorly on the right. This is nonspecific in appearance by CT. It is of low suspicion for malignancy. Followup CT imaging in 6 months to document stability would be of benefit. 3. Bilateral pleural effusions with small areas of atelectasis in the lung bases. Pantera Traore MD Objective Remarks GENERAL: NAD SKIN: Warm and dry. HEAD: Normocephalic. EYES: No scleral icterus. No injection or drainage. NECK: Supple, trachea midline. No JVD or lymphadenopathy. CARDIOVASCULAR: Regular rate and rhythm without murmurs, gallops, or rubs. RESPIRATORY: Breath sounds equal bilaterally. No accessory muscle use. GASTROINTESTINAL: Abdomen soft, non-tender, nondistended. MUSCULOSKELETAL: No cyanosis, or edema. BACK: Nontender without obvious deformity. No CVA tenderness. A/P Problem List: (1) Transverse myelitis ICD Code: G37.3 Status: Acute (2) Weakness of both lower extremities ICD Code: R29.898 Status: Acute (3) Bilateral lower extremity pain ICD Code: M79.604 Status: Acute (4) Left leg DVT ICD Code: I82.402 Status: Acute (5) Hypothyroidism ICD Code: E03.9 Status: Chronic (6) Hypertension ICD Code: I10 Status: Chronic Assessment and Plan 86-year-old female with Transverse myelitis Patient undergoing plasma exchange per neurology and hematology. EMG apparently was neg. status post LP. Improving. Continue rehabilitation efforts as well as Neurontin and baclofen when necessary Last plasmapheresis treatment scheduled today 02/28/17 DVT left lower extremity - Appreciate hematology input - Lovenox to restarted after removal of Vascath today. Hypertension: -Continue metoprolol and Norvasc. Resume losartan on discharge. Hypothyroidism - on home Synthroid - TSH 0.880, T4 8.2 on 02/15/17 DVT prophylaxis -On Lovenox Andres Kinney MD Feb 28, 2017 12:28
[2017-02-28 12:30] VITALS: BP 124/58; PULSE 67; RESP 17; TEMP 98.7; O2SAT 94
--- NOTE | 2017-02-28 12:30 | PD.ONC.PN ---
Subjective Subjective Remarks Afebrile overnight. Patient to receive last plasma exchange today. No bleeding. Objective Data Date Time Temp Pulse Resp B/P Pulse Ox O2 Delivery O2 Flow Rate FiO2 02/28/17 07:16 98.3 65 16 127/64 95 02/28/17 00:00 96.7 76 20 135/66 95 02/27/17 20:00 99.3 77 18 133/64 95 02/27/17 16:10 100.1 84 18 158/70 97 02/28/17 02/28/17 02/28/17 07:00 15:00 23:00 Intake Total 240 ml Balance 240 ml Result Diagram: 02/28/17 1028 02/24/17 0720 Laboratory Results Laboratory Tests Test 02/28/17 10:28 White Blood Count 13.3 TH/MM3 Red Blood Count 3.70 MIL/MM3 Hemoglobin 11.4 GM/DL Hematocrit 34.8 % Mean Corpuscular Volume 94.1 FL Mean Corpuscular Hemoglobin 30.9 PG Mean Corpuscular Hemoglobin 32.8 % Concent Red Cell Distribution Width 14.3 % Platelet Count 159 TH/MM3 Mean Platelet Volume 8.7 FL Neutrophils (%) (Auto) 82.0 % Lymphocytes (%) (Auto) 9.7 % Monocytes (%) (Auto) 6.6 % Eosinophils (%) (Auto) 1.5 % Basophils (%) (Auto) 0.2 % Neutrophils # (Auto) 10.9 TH/MM3 Lymphocytes # (Auto) 1.3 TH/MM3 Monocytes # (Auto) 0.9 TH/MM3 Eosinophils # (Auto) 0.2 TH/MM3 Basophils # (Auto) 0.0 TH/MM3 CBC Comment DIFF FINAL Differential Comment Administered Medications Medications (Trade) Dose Ordered Sig/Jaron Route PRN Reason Start Time Stop Time Status Last Admin Dose Admin Sodium Chloride (NS Flush) 2 ml BID IV FLUSH 02/17/17 09:00 02/28/17 10:46 Levothyroxine Sodium (Synthroid) 50 mcg DAILY@06 PO 02/17/17 06:00 02/28/17 05:00 Losartan Potassium (Cozaar) 50 mg DAILY PO 02/17/17 09:00 Hold 02/20/17 10:14 Metoprolol Tartrate (Lopressor) 50 mg DAILY PO 02/17/17 09:00 02/28/17 10:45 Acetaminophen/ Hydrocodone Bitart ([place] 5-325 Mg) 1 tab Q6H PRN PO pain >5 02/17/17 00:45 02/26/17 19:33 Docusate Sodium (Colace) 100 mg BID PO 02/17/17 09:00 02/28/17 10:45 Magnesium Hydroxide (Milk Of Magnesia Liq) 30 ml DAILY PRN PO CONSTIPATION 02/17/17 01:45 02/20/17 10:14 Miscellaneous (Pill Splitter) 1 ea UNSCH PRN OTHER SEE LABEL COMMENTS 02/17/17 08:15 02/17/17 10:12 Pantoprazole Sodium (Protonix) 20 mg DAILY PO 02/17/17 10:00 02/28/17 10:45 Amlodipine Besylate (Norvasc) 5 mg DAILY PO 02/20/17 12:00 02/28/17 10:45 Clonidine (Catapres) 0.1 mg Q6H PRN PO SBP> OR = 180, DBP> OR = 100 02/20/17 11:30 02/21/17 11:43 Albumin Human 100 gm 100 gm Q48H IV 02/20/17 18:00 02/28/17 18:01 02/26/17 11:40 Calcium Gluconate 2 gm/Sodium Chloride 120 ml @ 90 mls/hr Q48H IV 02/20/17 18:00 02/28/17 19:19 02/26/17 11:40 Sodium Chloride (NS 1000 ml Inj) 1,000 ml @ 0 mls/hr Q48H IV 02/20/17 18:00 03/01/17 23:59 02/26/17 11:40 Anticoagulant Citrate Dextose Felicia A (Acd Formula Inj) 1,000 ml Q48H OTHER 02/20/17 18:00 02/28/17 18:01 02/26/17 11:41 Heparin Sodium (Porcine) (Heparin Inj) 5,000 units UNSCH PRN IV FLUSH FLUSH AFTER USING IV ACCESS 02/20/17 18:00 02/28/17 18:01 02/26/17 11:39 Gabapentin (Neurontin) 300 mg TID@,, PO 02/23/17 09:00 02/28/17 10:45 Baclofen (Lioresal) 10 mg Q8HR PRN PO spasms 02/27/17 12:07 02/27/17 13:51 Objective Remarks GENERAL: Elderly female, sitting up in bed, just finished breakfast. SKIN: Warm and dry. vascath right neck, no bleeding. HEAD: Normocephalic. EYES: No injection or drainage. NECK: Supple, trachea midline. CARDIOVASCULAR: Regular rate and rhythm RESPIRATORY: Breath sounds equal bilaterally. No accessory muscle use. GASTROINTESTINAL: Abdomen soft, non-tender, nondistended. EXTREMITIES: No cyanosis NEUROLOGICAL: awake and alert, normal speech Assessment/Plan Problem List: (1) Weakness of both lower extremities Status: Acute Plan: 02/28: last day of PEX (#5). then remove vascath and d/c to [place]. start Lovenox tonight 02/27: off day 02/26/17. s/p PEX #4, tolerated treatment, no bleeding. Transverse myelitis. 02/25: Fibrinogen ordered today. Mild oozing on Vascath dressing noted. Await Fibrinogen results today; may transfuse cryo if low. 02/24: PEX #3 today. Pt doing well feels stronger, leg moving better, temporally related to starting pheresis. (2) Left leg DVT Status: Acute Plan: --resume Lovenox tonight Assessment 86 y/o female with LE weakness, L>R - diff dx transverse myelitis. HPI: complained of some claudication in her legs over the last several months. A week ago she presented with lower extremity weakness, primarily in the left at [facility] was transferred to [place] for EMG evaluation by neurology. --MRI at [facility] showed no cervical, thoracic, lumbar cord compression or central canal stenosis. --MRI of brain showed no acute intracranial abnormality. --CTA of the abdomen and pelvis showed chronic total occlusion of the right superficial femoral artery, multifocal moderate to severe stenosis in the left superficial femoral artery. --CT scan of the chest showed COPD changes with pleural based nodule on the right measuring 0.8 x 1.2 cm. There was low suspicion for malignancy. 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 --a plasmapheresis for a myelopathy in case of a transverse myelitis was recommended. Plan 1. last day of plasma exchange today 2. remove vascath after plasma exchange 3. resume Lovenox tonight Coye,Rossana Galilea PA Feb 28, 2017 12:30
[2017-02-28] MEDS ORDERED: BACL10TA PO (12:35)
[2017-02-28] MEDS ORDERED: ENOX60P SQ (12:35)
[2017-02-28] MEDS ORDERED: AMLO5 PO (12:35)
[2017-02-28] MEDS ORDERED: NEUR300C PO (12:35)
--- NOTE | 2017-02-28 12:41 | HHI.DS ---
Discharge Summary Admission Date Feb 16, 2017 at 21:47 Discharge Date: Feb 28, 2017 Admitting Diagnosis (1) Transverse myelitis ICD Code: G37.3 (2) Weakness of both lower extremities ICD Code: R29.898 (3) Bilateral lower extremity pain ICD Code: M79.604 (4) Left leg DVT ICD Code: I82.402 (5) Hypothyroidism ICD Code: E03.9 (6) Hypertension ICD Code: I10 Procedures none Brief History - From Admission Mrs. Terrazas is a pleasant 86 year-old female who states she was in mostly good health (with no hospitalizations since 1978) until the end january when she developed weakness and pain in her lower extremities. She was initially admitted to [facility] 02/11/17-02/13/17 and was transferred to [facility] for neurosurgical evaluation and was discharged on 02/16/17to [place] for EMG per Dr. Burton who had evaluated her at [facility]. Medical records from [facility] reviewed; labs unremarkable - CPK normal at 107 on 02/16/17 MRI Cervical spine 02/15/17 with prominent multilevel degenerative changes causing mild to moderate central canal and neural foraminal stenosis. No cord compression or myelomalacia MRI Thoracic spine 02/15/17 with multilevel degenerative changes without central canal or neural foraminal stenosis. No cord compression or myelomalacia. Small bilateral pleural effusions. 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 The patient reports that she lives with her and has been independently ambulatory and able to drive herself until the end of January when she began to experience increasing pain and weakness in her bilateral lower extremities that was somewhat worse on the left. She states she has not regained strength in her lower extremities throughout her hospitalizations. She reports that a DVT was found in her left lower extremity at [facility] and states that she takes Coumadin and Lovenox for this. Prior to this hospitalization, she denies any dizziness, chest pain, palpitations, shortness of breath, dizziness, nausea, vomiting, diarrhea, black or bright red stools. She denies any recent cold or flu symptoms such as fever , chills, nasal discharge, or sinus pressure/congestion. She denies any history of burning or pain with urination, urinary incontinence; She reports no BMs since 02/12/17. She denies any history of diabetes mellitus, heart disease, congestive heart failure, atrial fibrillation, respiratory disease, liver or kidney problems, seizures, cancers, and prior to hospitalization at [facility], she had no history of blood clots such as DVT, CVA or PE. . CBC/BMP: 02/28/17 1028 02/24/17 0720 Significant Findings Laboratory Tests Test 02/25/17 02/26/17 02/28/17 17:37 11:13 10:28 Fibrinogen 196 mg/dL (227-377) White Blood Count 12.7 TH/MM3 13.3 TH/MM3 (4.0-11.0) (4.0-11.0) Red Blood Count 3.88 MIL/MM3 3.70 MIL/MM3 (4.00-5.30) (4.00-5.30) Neutrophils (%) (Auto) 80.2 % 82.0 % (16.0-70.0) (16.0-70.0) Neutrophils # (Auto) 10.2 TH/MM3 10.9 TH/MM3 (1.8-7.7) (1.8-7.7) Hemoglobin 11.4 GM/DL (11.6-15.3) Hematocrit 34.8 % (35.0-46.0) Imaging Last Impressions Foot X-Ray 02/25/17 0000 Signed Impressions: Service Date/Time: Saturday, February 25, 2017 19:59 - CONCLUSION: Soft tissue swelling without perceptible fracture. Hallux valgus with associated degenerative changes. Chad Myrick MD Catheter Placement X-Ray 02/20/17 0000 Signed Impressions: Service Date/Time: Monday, February 20, 2017 14:59 - CONCLUSION: Uncomplicated line placement as above. Avelino Ng MD Lumbar Puncture Fluoroscopy 02/19/17 0000 Signed Impressions: Service Date/Time: February 10:13 - CONCLUSION: Uncomplicated fluoroscopically guided lumbar puncture. Avelino Ng MD Chest CT 02/19/17 0000 Signed Impressions: Service Date/Time: February 09:22 - CONCLUSION: 1. COPD changes. 2. 0.8 x 1.2 cm pleural-based nodule posteriorly on the right. This is nonspecific in appearance by CT. It is of low suspicion for malignancy. Followup CT imaging in 6 months to document stability would be of benefit. 3. Bilateral pleural effusions with small areas of atelectasis in the lung bases. Pantera Traore MD PE at Discharge GENERAL: NAD SKIN: Warm and dry. HEAD: Normocephalic. EYES: No scleral icterus. No injection or drainage. NECK: Supple, trachea midline. No JVD or lymphadenopathy. CARDIOVASCULAR: Regular rate and rhythm without murmurs, gallops, or rubs. RESPIRATORY: Breath sounds equal bilaterally. No accessory muscle use. GASTROINTESTINAL: Abdomen soft, non-tender, nondistended. MUSCULOSKELETAL: No cyanosis, or edema. BACK: Nontender without obvious deformity. No CVA tenderness. Hospital Course Patient diagnosed with transverse myelitis for which neurology and hematology were consulted. Plasma exchange therapy was provided per protocol and PT/OT were consulted. Normotensive states was achieved with Lopressor and Norvasc 5 mg which was added. Lovenox 60 mg subcutaneous twice a day was held however he would be resumed tonight 02/28/17 after Vas-Cath removal. Pt Condition on Discharge: Stable Discharge Disposition: Rehab Inpatient Discharge Time: > 30 minutes Discharge Instructions DIET: Follow Instructions for: Heart Healthy Diet Activities you can perform: Regular-No Restrictions Follow up Referrals: Oncology PCP Follow-up - 2-3 Days New Medications: Amlodipine (Norvasc) 5 Mg Tab 5 MG PO DAILY Blood Pressure Management #30 TAB Baclofen (Baclofen) 10 Mg Tab 10 MG PO Q8HR PRN spasms #30 TAB Enoxaparin Inj (Lovenox Inj) 60 Mg/0.6 Ml Syr 60 MG SQ Q12H Prevent Blood Clot #60 INJECTION Gabapentin (Neurontin) 300 Mg Cap 300 MG PO TID@09,13,21 Build Immunity #90 CAP Continued Medications: Hydrocodone-Acetaminophen ([place]) 5-325 mg Tab 1 TAB PO Q4H PRN PAIN Ref 0 TAB Levothyroxine (Synthroid) 50 Mcg Tab 50 MCG PO DAILY Thyroid #30 Ref 0 TAB Metoprolol Tartrate (Metoprolol Tartrate) 50 Mg Tab 50 MG PO DAILY #30 Ref 0 TAB Discontinued Medications: Losartan (Losartan) 50 Mg Tab 50 MG PO DAILY Blood Pressure Management #30 Ref 0 TAB Andres Kinney MD Feb 28, 2017 12:40
[2017-02-28] MEDS: ACETAMINOPHEN/HYDROcodone 325 MG/5 MG TAB PO PRN (12:46)
[2017-02-28] MEDS: ANTICOAGULANT CITRATE DEXTROSE SOLN-A 1L OTHER SCH (12:48)
[2017-02-28] MEDS: ALBUMIN HUMAN 5% 25 GM/500 ML BOTTLE IV SCH (12:48)
[2017-02-28] MEDS: CALCIUM GLUCONATE INJ 2 GM in SODIUM CHLORIDE 0.9% INJ 100 ML IV SCH (12:49)
[2017-02-28] MEDS: SODIUM CHLOR 0.9% 1000 ML INJ 1,000 ML IV SCH (12:49)
[2017-02-28] MEDS: HEPARIN SODIUM - 10,000 UNITS/ML 1ML VIAL IV FLUSH PRN (12:50)
[2017-02-28 16:00] VITALS: BP 115/59; PULSE 73; RESP 16; TEMP 98.8; O2SAT 93
[2017-02-28] MEDS ORDERED: HYDR-3516 PO (18:34)
[2017-02-28] MEDS ORDERED: ENOXAPARIN SODIUM 60 MG/0.6 ML SYRINGE SQ SCH (21:00)
[2017-03-16] MEDS ORDERED: WHEEMIS3 (15:33)
[2017-03-16] MEDS ORDERED: GETGO ROLLING W1 MI1 (15:33)
[2017-03-17] MEDS ORDERED: METO25TA3 PO (13:56)
[2017-03-17] MEDS ORDERED: GABA100C4 PO (13:56)
[2017-03-17] MEDS ORDERED: LEVO.05 PO (13:56)
[2017-03-17] MEDS ORDERED: COUM1TAB PO (13:56)
[2017-03-17] MEDS ORDERED: AMLO10 PO (13:56)
== END 2017-02-28 17:32 | DRG 98 ==
LOC: N06A 21:47
PROVIDERS: ADMIT Hospitalist; ATTEND Hospitalist
PROC: 009U3ZX Drainage of Spinal Canal, Percutaneous Approach, Diagnostic (ICD-10-PCS; principal; 2017-02-19)
PROC: 02HV33Z Insertion of Infusion Device into Superior Vena Cava, Percutaneous Approach (ICD-10-PCS; 2017-02-20)
PROC: B543ZZA Ultrasonography of Right Jugular Veins, Guidance (ICD-10-PCS; 2017-02-20)
PROC: B5131ZA Fluoroscopy of Right Jugular Veins using Low Osmolar Contrast, Guidance (ICD-10-PCS; 2017-02-20)
PROC: 6A551Z3 Pheresis of Plasma, Multiple (ICD-10-PCS; 2017-02-20)
DX: G37.3 Acute transverse myelitis in demyelinating disease of central nervous system (principal); J90 Pleural effusion, not elsewhere classified; I82.402 Acute embolism and thrombosis of unspecified deep veins of left lower extremity; G62.89 Other specified polyneuropathies; I70.92 Chronic total occlusion of artery of the extremities; S90.32XA Contusion of left foot, initial encounter; J44.9 Chronic obstructive pulmonary disease, unspecified; I10 Essential (primary) hypertension; E03.9 Hypothyroidism, unspecified; I70.203 Unspecified atherosclerosis of native arteries of extremities, bilateral legs; I71.4 Abdominal aortic aneurysm, without rupture; E78.00 Pure hypercholesterolemia, unspecified; R39.15 Urgency of urination; M62.838 Other muscle spasm; M19.90 Unspecified osteoarthritis, unspecified site; W18.39XA Other fall on same level, initial encounter; Y92.230 Patient room in hospital as the place of occurrence of the external cause; Z87.891 Personal history of nicotine dependence
CPT/HCPCS: 36514; 36556; 62270; 71260; 73630; 76937; 77001; 77003; 80048; 80053; 82040; 82042; 82784; 82945; 83873; 83916; 84157; 84181; 85025; 85027; 85300; 85384; 85520; 85610; 85730; 86255; 86403; 86592; 86618; 86790; 86900; 86901; 86927; 87015; 87070; 87102; 87116; 87205; 87206; 87529; 88112; 89051; 93005; C1752; J0610; J1644; J1650; J2930; J7030; J7060; L1960; P9045; Q9967